=== PATIENT | male | born 1955 | race African-American/Black ===

== ENCOUNTER 2017-04-08 21:55 | Inpatient (IN) | payer MEDICARE, MEDICAID ==
[~2017-04-08] VITALS: Ht 182.9 cm; Wt 90.3 kg
[~2017-04-08 21:55] MED LIST: BENA40TA3 PO; DICL75TA5 PO; GABA-531 PO; GLIP10TA10 PO; INDA1.255; METO50TA95 PO; TRAM50TA3; VALS80TA25 PO
[2017-04-08] MEDS ORDERED: ONDANSETRON HCL 4MG/2ML VIAL IV STA (22:51)
[2017-04-08] MEDS ORDERED: KETOROLAC 30MG/ML VIAL IV STA (22:51)
[2017-04-09] MEDS ORDERED: DOCUSATE SODIUM 100MG CAPSULE PO PRN (00:15)
[2017-04-09] MEDS ORDERED: IPRATROPIUM/ALBUTEROL 0.5-3(2.5)MG/3ML NEB INH PRN (00:15)
[2017-04-09] MEDS ORDERED: CLONIDINE 0.1MG TABLET PO PRN (00:15)
[2017-04-09] MEDS ORDERED: MORPHINE SULFATE 4 MG/ML CPJ (NOT FOR IM USE) IV ONE (00:15)
[2017-04-09] MEDS ORDERED: MAGNESIUM/ALUMINUM HYDROXIDE/SIMETHICONE 30ML UDC PO PRN (00:15)
[2017-04-09] MEDS ORDERED: ACETAMINOPHEN 325MG TABLET PO PRN (00:15)
[2017-04-09] MEDS ORDERED: ONDANSETRON HCL 4MG/2ML VIAL IV PRN (00:15)
[2017-04-09] MEDS ORDERED: MORPHINE SULFATE 10 MG/ML CPJ IV ONE (00:30)
[2017-04-09] MEDS ORDERED: MORPHINE SULFATE 10 MG/ML CPJ IV SCH (00:30)
[2017-04-09 00:31] LABS: BASOPHILS % 0.7 % (0.0-2.0); EOSINOPHILS % 2.6 % (0.0-5.0); HEMATOCRIT. 31.1 % (42.0-52.0); HEMOGLOBIN. 10.3 g/dL (14.0-18.0); LYMPHOCYTES % 19.2 % (20.0-50.0); MEAN CORPUSCULAR HEMOGLOBIN 29.9 pg (28.0-32.0); MEAN CORPUSCULAR VOLUME 90.3 fL (80.0-94.0); MONOCYTES % 6.6 % (2.0-8.0); NEUTROPHILS % 70.9 % (40.0-76.0); PLATELET 163 x1000/uL (130-400); RED BLOOD CELL COUNT 3.45 mill/uL (4.7-6.1); RED CELL DISTRIBUTION WIDTH 15.6 % (11.6-14.6)
[2017-04-09 02:19] VITALS: BP 189/114
[2017-04-09] MEDS: HYDRALAZINE 20MG/ML VIAL IV PRN ×2 (02:58→20:23)
[2017-04-09] MEDS: HYDROCODONE/ACETAMINOPHEN 5/325MG TABLET PO PRN ×3 (02:59→22:01)
[2017-04-09 04:16] VITALS: BP 160/86
[2017-04-09] MEDS ORDERED: DEXTROSE 50% WATER 50ML SYRINGE IV PRN (04:30)
[2017-04-09] MEDS: BLOOD SUGAR DIAGNOSTIC STRIP TEST SCH ×4 (05:59→20:28)
[2017-04-09] MEDS: INSULIN LISPRO 100 UNITS/ML SUBCUT SCH ×4 (07:50→20:19)
[2017-04-09 08:00] VITALS: BP 183/104
[2017-04-09] MEDS: FOLIC ACID/VITAMIN B COMP W-C TABLET PO SCH (09:01)
[2017-04-09 12:00] VITALS: BP 151/94
[2017-04-09] MEDS ORDERED: NON FORMULARY PATIENT HOME MED EA XX SCH (12:15)
[2017-04-09] MEDS: METOPROLOL TARTRATE 50MG TABLET PO SCH (12:45)
[2017-04-09] MEDS: DICLOFENAC SODIUM 75MG DR (EC) TABLET PO SCH (12:45)
[2017-04-09] MEDS: BENAZEPRIL 20MG TABLET PO SCH (12:45)
[2017-04-09 16:00] VITALS: BP 184/111
[2017-04-09] MEDS: GLIPIZIDE 10MG TABLET PO SCH (16:43)
[2017-04-09] MEDS ORDERED: DIPHENHYDRAMINE 50MG/ML VIAL IV PRN ×2 (16:45→17:00)
[2017-04-09] MEDS: LOSARTAN POTASSIUM 50 MG TABLET PO SCH (18:00)
[2017-04-09 20:00] VITALS: BP 176/106
[2017-04-09] MEDS ORDERED: EPOETIN ALFA 4000UNITS/ML VIAL SUBCUT SCH (21:00)
[2017-04-09] MEDS ORDERED: GABAPENTIN 300MG CAPSULE PO SCH (21:00)
[2017-04-10] VITALS: BP 152/90
[2017-04-10] MEDS: METOPROLOL TARTRATE 50MG TABLET PO SCH ×2 (01:22→13:01)
[2017-04-10 04:00] VITALS: BP 131/84
[2017-04-10] MEDS: BLOOD SUGAR DIAGNOSTIC STRIP TEST SCH ×2 (06:51→12:20)
[2017-04-10 07:11] LABS: BASOPHILS % 0.9 % (0.0-2.0); EOSINOPHILS % 5.3 % (0.0-5.0); HEMOGLOBIN. 11.7 g/dL (14.0-18.0); LYMPHOCYTES % 28.8 % (20.0-50.0); MEAN CORPUSCULAR HEMOGLOBIN 29.5 pg (28.0-32.0); MEAN CORPUSCULAR VOLUME 90.3 fL (80.0-94.0); MONOCYTES % 9.7 % (2.0-8.0); NEUTROPHILS % 55.3 % (40.0-76.0); PLATELET 152 x1000/uL (130-400); RED BLOOD CELL COUNT 3.98 mill/uL (4.7-6.1)
[2017-04-10] MEDS: INSULIN LISPRO 100 UNITS/ML SUBCUT SCH ×2 (07:50→12:32)
[2017-04-10 08:00] VITALS: BP 141/96
[2017-04-10 08:03] LABS: PHOSPHORUS 5.7 mg/dL (2.5-4.9); TROPONIN I 0.25 ng/mL (0.00-0.04)
[2017-04-10] MEDS: GLIPIZIDE 10MG TABLET PO SCH (08:25)
[2017-04-10] MEDS: LOSARTAN POTASSIUM 50 MG TABLET PO SCH (08:25)
[2017-04-10] MEDS: FOLIC ACID/VITAMIN B COMP W-C TABLET PO SCH (08:26)
[2017-04-10] MEDS: DICLOFENAC SODIUM 75MG DR (EC) TABLET PO SCH (08:26)
[2017-04-10] MEDS: HYDROCODONE/ACETAMINOPHEN 5/325MG TABLET PO PRN (08:27)
[2017-04-10] MEDS: BENAZEPRIL 20MG TABLET PO SCH (08:34)
[2017-04-10 08:57] VITALS: BP 141/96
[2017-04-10 10:43] VITALS: BP 150/88
[2017-04-10 12:33] VITALS: BP 152/89
[2017-04-10] MEDS ORDERED: SEVELAMER CARBONATE 800 MG TABLET PO SCH (12:50)
[2017-04-11] MEDS ORDERED: LOSARTAN POTASSIUM 100 MG TABLET PO SCH (09:00)
== END 2017-04-10 14:15 | disposition home or self-care (01) | DRG 291 ==
LOC: ER 21:55 → 6WST 23:52 → EDBEDREQTM 23:54 → EDBEDREQ 23:54 → ENRESERV 04-09 00:41
PROVIDERS: ADMIT Internal Medicine; ATTEND Internal Medicine
PROC: 5A1D70Z Performance of Urinary Filtration, Intermittent, Less than 6 Hours Per Day (ICD-10-PCS; principal; 2017-04-09)
DX: I13.2 Hypertensive heart and chronic kidney disease with heart failure and with stage 5 chronic kidney disease, or end stage renal disease (principal); N18.6 End stage renal disease; E11.22 Type 2 diabetes mellitus with diabetic chronic kidney disease; E11.51 Type 2 diabetes mellitus with diabetic peripheral angiopathy without gangrene; I50.31 Acute diastolic (congestive) heart failure; D63.8 Anemia in other chronic diseases classified elsewhere; E66.9 Obesity, unspecified; E78.5 Hyperlipidemia, unspecified; M54.5 Low back pain; K59.00 Constipation, unspecified; F17.210 Nicotine dependence, cigarettes, uncomplicated; F32.9 Major depressive disorder, single episode, unspecified; G89.29 Other chronic pain; M19.90 Unspecified osteoarthritis, unspecified site; Z79.84 Long term (current) use of oral hypoglycemic drugs; Z79.899 Other long term (current) drug therapy; Z91.19 Patient's noncompliance with other medical treatment and regimen; Z95.810 Presence of automatic (implantable) cardiac defibrillator; Z99.2 Dependence on renal dialysis; Z68.27 Body mass index [BMI] 27.0-27.9, adult
CPT/HCPCS: 36415; 71010; 80048; 80061; 82550; 82962; 83735; 84100; 84443; 84484; 85025; 93005; 93306; 93970; 96374; 96375; 99285; J0360; J0885; J1200; J1815; J1885; J2270; J2405; J7030

== ENCOUNTER 2017-04-13 23:43 | Emergency (ER) | payer MEDICARE, MEDICAID ==
[~2017-04-13] VITALS: Ht 182.9 cm; Wt 91.0 kg
[2017-04-14 01:30] LABS: BASOPHILS % 0.9 % (0.0-2.0); EOSINOPHILS % 4.8 % (0.0-5.0); HEMATOCRIT. 31.6 % (42.0-52.0); HEMOGLOBIN. 10.2 g/dL (14.0-18.0); LYMPHOCYTES % 31.8 % (20.0-50.0); MEAN CORPUSCULAR HEMOGLOBIN 29.3 pg (28.0-32.0); MEAN CORPUSCULAR VOLUME 90.4 fL (80.0-94.0); MEAN PLATELET VOLUME 8.4 fl (7.4-10.4); MONOCYTES % 9.1 % (2.0-8.0); NEUTROPHILS % 53.4 % (40.0-76.0); PLATELET 138 x1000/uL (130-400); RED BLOOD CELL COUNT 3.49 mill/uL (4.7-6.1)
[2017-04-14 01:39] LABS: TROPONIN I 0.12 ng/mL (0.00-0.04)
[2017-04-14 03:10] VITALS: BP 127/92
== END 2017-04-14 03:12 | disposition home or self-care (01) ==
LOC: ER 23:59
DX: R06.02 Shortness of breath (principal); I10 Essential (primary) hypertension; F17.200 Nicotine dependence, unspecified, uncomplicated; Z99.2 Dependence on renal dialysis
CPT/HCPCS: 36415; 71010; 80048; 84484; 85025; 93005; 99285

== ENCOUNTER 2018-04-14 07:10 | Day surgery (SDC) | payer MEDICARE, MEDICAID ==
[~2018-04-14] VITALS: Ht 182.9 cm; Wt 84.8 kg
[~2018-04-14 07:10] MED LIST changes: -BENA40TA3 PO; +BENA40TA9 PO; -GLIP10TA10 PO; +SODIUM CHLORIDE 0.9% 500 ML IV NR; -VALS80TA25 PO
[2018-04-14] MEDS ORDERED: BACITRACIN 15GM TUBE TOP ONE (07:39)
[2018-04-14] MEDS ORDERED: BACITRACIN 50,000 UNITS/VIAL ONE (07:40)
[2018-04-14] MEDS ORDERED: THROMBIN (BOVINE) 5000 UNITS/VIAL TOP ONE ×2 (07:40→11:24)
[2018-04-14] MEDS ORDERED: HEPARIN SODIUM 1,000 UNIT/1ML VIAL IV ONE (07:40)
[2018-04-14] MEDS ORDERED: NORMAL SALINE 0.9% 10 ML SYR ONE (07:40)
[2018-04-14] MEDS ORDERED: GELATIN SPONGE,ABSORBABLE 12-7MM SPONGE ONE (07:43)
[2018-04-14] MEDS ORDERED: LIDOCAINE HCL 1% 20ML VIAL (Pyxis) INJ ONE (07:43)
[2018-04-14] MEDS ORDERED: BUPIVACAINE HCL/PF 0.5% (5MG/ML) 10ML ONE (07:43)
[2018-04-14 08:12] LABS: BASOPHILS % 0.8 % (0.0-2.0); EOSINOPHILS % 6.7 % (0.0-5.0); HEMATOCRIT. 36.9 % (42.0-52.0); HEMOGLOBIN. 12.1 g/dL (14.0-18.0); LYMPHOCYTES % 20.1 % (20.0-50.0); MEAN CORPUSCULAR HEMOGLOBIN 30.7 pg (28.0-32.0); MEAN CORPUSCULAR VOLUME 93.5 fL (80.0-94.0); MEAN PLATELET VOLUME 8.5 fl (7.4-10.4); MONOCYTES % 12.4 % (2.0-8.0); PLATELET 115 x1000/uL (130-400); RED BLOOD CELL COUNT 3.95 mill/uL (4.7-6.1); RED CELL DISTRIBUTION WIDTH 17.2 % (11.6-14.6)
[2018-04-14 08:23] LABS: PARTIAL THROMBOPLASTIN TIME 26.7 sec (23.4-31.0); PROTHROMBIN TIME 9.8 sec (9.1-11.1)
[2018-04-14] MEDS ORDERED: VALS80TA30 PO (08:45)
[2018-04-14] MEDS ORDERED: GLIP10TA10 PO (08:45)
[2018-04-14] MEDS ORDERED: TYLENOL PM PO (08:45)
[2018-04-14] MEDS ORDERED: FENTANYL CITRATE/PF 50MCG/ML 2ML VIAL ONE (09:53)
[2018-04-14] MEDS ORDERED: MIDAZOLAM HCL 2 MG/2 ML VIAL ONE (09:53)
[2018-04-14] MEDS ORDERED: GLYCOPYRROLATE 0.2 MG/ML 2ML VIAL ONE (09:53)
[2018-04-14] MEDS ORDERED: PROPOFOL 200MG/20ML VIAL IV ONE (09:53)
[2018-04-14] MEDS ORDERED: LIDOCAINE HCL/PF 1% 10 MG/ML 5ML VIAL ONE (09:54)
[2018-04-14] MEDS ORDERED: METOCLOPRAMIDE HCL 10MG/2ML VIAL ONE (09:54)
[2018-04-14] MEDS ORDERED: SUCCINYLCHOLINE CHLORIDE 200MG/10ML IV ONE (09:54)
[2018-04-14] MEDS ORDERED: PHENYLEPHRINE HCL 10 MG/ML 1ML (IV VIAL) IV ONE (09:54)
[2018-04-14] MEDS ORDERED: ONDANSETRON HCL 4MG/2ML INJ ONE (09:54)
[2018-04-14] MEDS ORDERED: EPHEDRINE SULFATE 50MG/ML VIAL ONE (09:54)
[2018-04-14] MEDS ORDERED: PAPAVERINE HCL 30 MG/ML 2ML IV ONE (10:35)
[2018-04-14] MEDS ORDERED: HEPARIN 1000 UNITS/ML 10ML ONE (10:56)
[2018-04-14] MEDS ORDERED: MEPERIDINE HCL/PF 25MG/ML CPJ IV PRN (11:15)
[2018-04-14] MEDS ORDERED: HYDROMORPHONE HCL/PF 2MG/ML CPJ IV PRN (11:15)
[2018-04-14] MEDS ORDERED: MORPHINE SULFATE 4 MG/ML CPJ (NOT FOR IM USE) IV PRN (11:15)
[2018-04-14] MEDS ORDERED: ONDANSETRON HCL 4MG/2ML INJ IV PRN (11:15)
[2018-04-14] MEDS ORDERED: SODIUM CHLORIDE 0.9% 1,000 ML IV ONE (11:20)
[2018-04-14] MEDS ORDERED: PROTAMINE SULFATE 10MG/ML VIAL 5ML IV ONE (11:30)
[2018-04-14] MEDS ORDERED: HYDROCODONE/APAP 7.5/325MG 1 TAB TABLET PO NR (13:00)
[2018-04-14 13:20] VITALS: BP 136/82
== END 2018-04-14 13:35 | disposition home or self-care (01) ==
LOC: OR 07:10
PROVIDERS: ATTEND Surgery Vascular Surgery
DX: I77.0 Arteriovenous fistula, acquired (principal); J44.9 Chronic obstructive pulmonary disease, unspecified; I13.2 Hypertensive heart and chronic kidney disease with heart failure and with stage 5 chronic kidney disease, or end stage renal disease; E11.22 Type 2 diabetes mellitus with diabetic chronic kidney disease; N18.6 End stage renal disease; I50.9 Heart failure, unspecified; F32.9 Major depressive disorder, single episode, unspecified; F17.210 Nicotine dependence, cigarettes, uncomplicated; M19.90 Unspecified osteoarthritis, unspecified site; E78.5 Hyperlipidemia, unspecified; Z79.899 Other long term (current) drug therapy; Z98.890 Other specified postprocedural states; Z95.0 Presence of cardiac pacemaker; Z96.651 Presence of right artificial knee joint
CPT/HCPCS: 36415; 36819; 80048; 82962; 85025; 85610; 85730; A4216; J0330; J1644; J2250; J2370; J2405; J2440; J2720; J2765; J3010; J3490; A4565; J2704; J7040

== ENCOUNTER 2018-05-21 12:43 | Emergency (ER) | payer MEDICARE, MEDICAID ==
[~2018-05-21] VITALS: Ht 182.9 cm; Wt 82.0 kg
[~2018-05-21 12:43] MED LIST changes: +GLIP10TA10 PO; -SODIUM CHLORIDE 0.9% 500 ML IV NR; +TYLENOL PM PO; +VALS80TA30 PO
[2018-05-21] MEDS ORDERED: TRAMADOL 50MG TABLET PO ONE (16:00)
[2018-05-21 18:21] VITALS: BP 154/89
== END 2018-05-21 18:25 | disposition home or self-care (01) ==
LOC: ER 13:20
DX: S46.911A Strain of unspecified muscle, fascia and tendon at shoulder and upper arm level, right arm, initial encounter (principal); S29.012A Strain of muscle and tendon of back wall of thorax, initial encounter; I11.0 Hypertensive heart disease with heart failure; I50.9 Heart failure, unspecified; J45.909 Unspecified asthma, uncomplicated; E11.9 Type 2 diabetes mellitus without complications; F17.200 Nicotine dependence, unspecified, uncomplicated; Z99.2 Dependence on renal dialysis; Z79.899 Other long term (current) drug therapy; V59.59XA Passenger in pick-up truck or van injured in collision with other motor vehicles in traffic accident, initial encounter; Y93.89 Activity, other specified; Y92.89 Other specified places as the place of occurrence of the external cause; Y99.8 Other external cause status
CPT/HCPCS: 72070; 72100; 73030; 99283

== ENCOUNTER 2018-08-14 06:08 | Inpatient (IN) | payer MEDICARE, MEDICAID ==
[~2018-08-14] VITALS: Ht 182.9 cm; Wt 85.4 kg
[2018-08-14] MEDS ORDERED: OXYCODONE HCL/ACETAMINOPHEN 5/325MG TABLET PO ONE (07:00)
[2018-08-14] MEDS ORDERED: IPRATROPIUM BROMIDE (0.02%) 0.5MG/2.5ML NEB HHN STA (07:05)
[2018-08-14] MEDS ORDERED: METHYLPREDNISOLONE SOD SUCC 125 MG/2 ML VIAL IV STA (07:05)
[2018-08-14 07:23] LABS: CHLORIDE 106 mEq/L (98-107)
[2018-08-14] MEDS ORDERED: ALBUTEROL (0.083%) 2.5MG/3ML NEB HHN SCH (07:30)
[2018-08-14 07:41] LABS: BASOPHILS % 0.4 % (0.0-2.0); HEMATOCRIT. 33.3 % (42.0-52.0); LYMPHOCYTES % 25.4 % (20.0-50.0); MEAN CORPUSCULAR HEMOGLOBIN 30.7 pg (28.0-32.0); MEAN CORPUSCULAR VOLUME 92.8 fL (80.0-94.0); MEAN PLATELET VOLUME 9.6 fl (7.4-10.4); MONOCYTES % 14.1 % (2.0-8.0); NEUTROPHILS % 56.1 % (40.0-76.0); PLATELET 157 x1000/uL (130-400); RED BLOOD CELL COUNT 3.59 mill/uL (4.7-6.1); RED CELL DISTRIBUTION WIDTH 15.8 % (11.6-14.6)
[2018-08-14] MEDS ORDERED: MORPHINE SULFATE 4 MG/ML CPJ (NOT FOR IM USE) IV ONE ×2 (08:15→12:45)
[2018-08-14] MEDS ORDERED: CLONIDINE 0.2MG TABLET PO NR (09:30)
[2018-08-14] MEDS ORDERED: NON FORMULARY PATIENT HOME MED XX SCH (12:15)
[2018-08-14] MEDS ORDERED: ONDANSETRON HCL 4MG/2ML INJ IV PRN (12:30)
[2018-08-14] MEDS ORDERED: CLONIDINE 0.1MG TABLET PO PRN (12:30)
[2018-08-14] MEDS ORDERED: DOCUSATE SODIUM 100MG CAPSULE PO PRN (12:30)
[2018-08-14] MEDS ORDERED: ACETAMINOPHEN 325MG TABLET PO PRN (12:30)
[2018-08-14 13:20] VITALS: BP 184/93
[2018-08-14 13:34] LABS: CREATINE KINASE MB FRACTION 6.2 ng/mL (0.5-3.6)
[2018-08-14] MEDS ORDERED: DEXTROSE 50% WATER 50ML SYRINGE IV PRN (14:00)
[2018-08-14] MEDS ORDERED: LOSARTAN POTASSIUM 50 MG TABLET PO SCH (14:02)
[2018-08-14] MEDS: METOPROLOL TARTRATE 50MG TABLET PO SCH (14:03)
[2018-08-14] MEDS: INSULIN LISPRO 100 UNITS/ML SUBCUT SCH ×3 (14:11→21:42)
[2018-08-14] MEDS: BLOOD SUGAR DIAGNOSTIC STRIP TEST SCH ×3 (14:11→21:44)
[2018-08-14 16:20] VITALS: BP 146/77
[2018-08-14] MEDS ORDERED: BLOOD SUGAR DIAGNOSTIC STRIP TEST SCH (17:20)
[2018-08-14] MEDS: GLIPIZIDE 10MG TABLET PO SCH (17:24)
[2018-08-14] MEDS: CLONIDINE 0.1MG TABLET PO SCH ×2 (17:25→21:43)
[2018-08-14] MEDS ORDERED: INSULIN LISPRO 100 UNITS/ML SUBCUT SCH (17:50)
[2018-08-14] MEDS: CALCIUM ACETATE 667MG CAPSULE PO SCH (18:13)
[2018-08-14] MEDS: IPRATROPIUM/ALBUTEROL 0.5-3(2.5)MG/3ML NEB INH PRN (18:41)
[2018-08-14] MEDS: HYDROCODONE/ACETAMINOPHEN 5/325MG TABLET PO PRN (18:59)
[2018-08-14 19:19] LABS: *AMPHETAMINES SCREEN URINE NEGATIVE (NEGATIVE); *BARBITURATES SCREEN URINE NEGATIVE (NEGATIVE); *BENZODIAZEPINES SCREEN URINE NEGATIVE (NEGATIVE); *COCAINE SCREEN URINE NEGATIVE (NEGATIVE)
[2018-08-14 19:20] LABS: CANNABINOID URINE SCREEN NEGATIVE (NEGATIVE); METHADONE URINE SCREEN NEGATIVE (NEGATIVE); OPIATES URINE SCREEN PRESUMTIVE POSITIVE (NEGATIVE); PHENCYCLIDINE URINE SCREEN NEGATIVE (NEGATIVE)
[2018-08-14 20:00] VITALS: BP 162/93
[2018-08-14] MEDS: LORAZEPAM 0.5MG TABLET PO PRN (21:32)
[2018-08-14] MEDS: GABAPENTIN 100MG CAPSULE PO SCH (21:36)
[2018-08-15] VITALS: BP 144/79
[2018-08-15 04:00] VITALS: BP 147/78
[2018-08-15] MEDS: BLOOD SUGAR DIAGNOSTIC STRIP TEST SCH ×4 (07:48→21:03)
[2018-08-15] MEDS: CLONIDINE 0.1MG TABLET PO SCH ×4 (07:48→22:06)
[2018-08-15] MEDS: CALCIUM ACETATE 667MG CAPSULE PO SCH ×4 (07:50→17:50)
[2018-08-15] MEDS: INSULIN LISPRO 100 UNITS/ML SUBCUT SCH ×4 (07:50→21:00)
[2018-08-15] MEDS: GLIPIZIDE 10MG TABLET PO SCH ×3 (07:50→17:50)
[2018-08-15] MEDS: IPRATROPIUM/ALBUTEROL 0.5-3(2.5)MG/3ML NEB INH PRN (07:58)
[2018-08-15 08:00] VITALS: BP 157/87
[2018-08-15] MEDS: METOPROLOL TARTRATE 50MG TABLET PO SCH ×2 (09:00→21:00)
[2018-08-15] MEDS: BENAZEPRIL 10MG TABLET PO SCH (09:00)
[2018-08-15] MEDS: LOSARTAN POTASSIUM 50 MG TABLET PO SCH ×2 (09:00→21:00)
[2018-08-15] MEDS: FOLIC ACID/VITAMIN B COMP W-C TABLET PO SCH ×2 (09:00→09:16)
[2018-08-15] MEDS: HYDROCODONE/ACETAMINOPHEN 5/325MG TABLET PO PRN (09:16)
[2018-08-15] MEDS ORDERED: DIPHENHYDRAMINE 50MG/ML VIAL IV SCH (10:00)
[2018-08-15] MEDS: MORPHINE SULFATE 4 MG/ML CPJ (NOT FOR IM USE) IV PRN ×2 (10:36→16:35)
[2018-08-15] MEDS ORDERED: GUAIFENESIN 200MG/10ML SUGAR FREE UDC PO PRN (12:30)
[2018-08-15 12:40] VITALS: BP 142/80
[2018-08-15 16:09] VITALS: BP 191/104
[2018-08-15] MEDS ORDERED: DIPHENHYDRAMINE 50MG/ML VIAL IV NR (19:30)
[2018-08-15 20:00] VITALS: BP 169/105
[2018-08-15] MEDS: GABAPENTIN 100MG CAPSULE PO SCH (22:05)
[2018-08-16] VITALS: BP 119/68
[2018-08-16 04:00] VITALS: BP 139/77
[2018-08-16] MEDS: CLONIDINE 0.1MG TABLET PO SCH ×4 (06:20→21:26)
[2018-08-16] MEDS: BLOOD SUGAR DIAGNOSTIC STRIP TEST SCH ×4 (06:20→20:06)
[2018-08-16 08:00] VITALS: BP 120/69
[2018-08-16 08:17] LABS: BASOPHILS % 0.5 % (0.0-2.0); EOSINOPHILS % 6.4 % (0.0-5.0); HEMATOCRIT. 31.5 % (42.0-52.0); HEMOGLOBIN. 10.5 g/dL (14.0-18.0); LYMPHOCYTES % 32.3 % (20.0-50.0); MEAN CORPUSCULAR VOLUME 92.7 fL (80.0-94.0); MEAN PLATELET VOLUME 9.7 fl (7.4-10.4); MONOCYTES % 7.9 % (2.0-8.0); NEUTROPHILS % 52.9 % (40.0-76.0); PLATELET 136 x1000/uL (130-400); RED CELL DISTRIBUTION WIDTH 15.6 % (11.6-14.6)
[2018-08-16 08:27] LABS: PHOSPHORUS 5.2 mg/dL (2.5-4.9)
[2018-08-16] MEDS: CALCIUM ACETATE 667MG CAPSULE PO SCH ×4 (09:19→17:50)
[2018-08-16] MEDS: FOLIC ACID/VITAMIN B COMP W-C TABLET PO SCH (09:19)
[2018-08-16] MEDS: GLIPIZIDE 10MG TABLET PO SCH ×2 (09:19→17:16)
[2018-08-16] MEDS: LOSARTAN POTASSIUM 50 MG TABLET PO SCH ×2 (09:19→20:06)
[2018-08-16] MEDS: METOPROLOL TARTRATE 50MG TABLET PO SCH ×2 (09:19→20:06)
[2018-08-16] MEDS: BENAZEPRIL 10MG TABLET PO SCH (09:19)
[2018-08-16] MEDS: INSULIN LISPRO 100 UNITS/ML SUBCUT SCH ×4 (09:22→20:06)
[2018-08-16 12:00] VITALS: BP 168/87
[2018-08-16 16:00] VITALS: BP 119/65
[2018-08-16] MEDS: HYDROCODONE/ACETAMINOPHEN 5/325MG TABLET PO PRN (18:37)
[2018-08-16 20:00] VITALS: BP 182/101
[2018-08-16] MEDS: GABAPENTIN 100MG CAPSULE PO SCH (20:06)
[2018-08-16] MEDS: MORPHINE SULFATE 4 MG/ML CPJ (NOT FOR IM USE) IV PRN (20:06)
[2018-08-16] MEDS: LORAZEPAM 0.5MG TABLET PO PRN (22:16)
[2018-08-16] MEDS: DIPHENHYDRAMINE 25MG CAPSULE PO PRN (23:43)
[2018-08-16] MEDS ORDERED: REGADENOSON 0.4 MG/5 ML IV NR (23:45)
[2018-08-16] MEDS ORDERED: ZOLPIDEM TARTRATE 5MG TABLET PO PRN (23:45)
[2018-08-17] VITALS: BP 135/76
[2018-08-17] MEDS: IPRATROPIUM/ALBUTEROL 0.5-3(2.5)MG/3ML NEB INH PRN ×3 (03:06→20:27)
[2018-08-17] MEDS: MORPHINE SULFATE 4 MG/ML CPJ (NOT FOR IM USE) IV PRN ×3 (03:52→21:03)
[2018-08-17 04:00] VITALS: BP 155/91
[2018-08-17] MEDS: CLONIDINE 0.1MG TABLET PO SCH ×3 (06:00→22:00)
[2018-08-17] MEDS: BLOOD SUGAR DIAGNOSTIC STRIP TEST SCH ×4 (06:20→21:00)
[2018-08-17] MEDS: INSULIN LISPRO 100 UNITS/ML SUBCUT SCH ×4 (07:50→21:00)
[2018-08-17] MEDS: GLIPIZIDE 10MG TABLET PO SCH ×2 (07:50→19:26)
[2018-08-17 08:00] VITALS: BP 135/78
[2018-08-17] MEDS: LOSARTAN POTASSIUM 50 MG TABLET PO SCH ×2 (09:00→21:00)
[2018-08-17] MEDS: BENAZEPRIL 10MG TABLET PO SCH (09:00)
[2018-08-17] MEDS: METOPROLOL TARTRATE 50MG TABLET PO SCH ×2 (09:00→21:00)
[2018-08-17] MEDS: DIPHENHYDRAMINE 25MG CAPSULE PO PRN (09:34)
[2018-08-17] MEDS: CALCIUM ACETATE 667MG CAPSULE PO SCH ×3 (09:35→19:26)
[2018-08-17] MEDS: FOLIC ACID/VITAMIN B COMP W-C TABLET PO SCH (09:35)
[2018-08-17] MEDS ORDERED: REGADENOSON 0.4 MG/5 ML IV ONE (11:02)
[2018-08-17] MEDS ORDERED: IODIXANOL 320MG/ML 100 ML BOTTLE IV ONE (14:48)
[2018-08-17] MEDS ORDERED: LIDOCAINE HCL 1% 20ML VIAL (Pyxis) INJ ONE (14:49)
[2018-08-17 16:00] VITALS: BP 175/103
[2018-08-17 20:00] VITALS: BP 167/97
[2018-08-17] MEDS: GABAPENTIN 100MG CAPSULE PO SCH (21:00)
[2018-08-17] MEDS: HYDROCODONE/ACETAMINOPHEN 5/325MG TABLET PO PRN (23:23)
[2018-08-17 23:58] VITALS: BP 195/92
[2018-08-18] MEDS: MORPHINE SULFATE 4 MG/ML CPJ (NOT FOR IM USE) IV PRN (02:55)
[2018-08-18 04:00] VITALS: BP 164/88
[2018-08-18] MEDS: CLONIDINE 0.1MG TABLET PO SCH (06:00)
[2018-08-18] MEDS: HYDROCODONE/ACETAMINOPHEN 5/325MG TABLET PO PRN (06:57)
[2018-08-18] MEDS: GLIPIZIDE 10MG TABLET PO SCH (07:30)
[2018-08-18] MEDS: CALCIUM ACETATE 667MG CAPSULE PO SCH (07:50)
[2018-08-18] MEDS: INSULIN LISPRO 100 UNITS/ML SUBCUT SCH ×2 (07:50→11:47)
[2018-08-18 07:59] VITALS: BP 115/46
[2018-08-18] MEDS: BLOOD SUGAR DIAGNOSTIC STRIP TEST SCH ×2 (08:19→11:45)
[2018-08-18] MEDS: DIPHENHYDRAMINE 25MG CAPSULE PO PRN (08:26)
[2018-08-18] MEDS: LOSARTAN POTASSIUM 50 MG TABLET PO SCH (09:00)
[2018-08-18] MEDS: FOLIC ACID/VITAMIN B COMP W-C TABLET PO SCH (09:00)
[2018-08-18] MEDS: METOPROLOL TARTRATE 50MG TABLET PO SCH (09:00)
[2018-08-18] MEDS: BENAZEPRIL 10MG TABLET PO SCH (09:00)
[2018-08-18 09:19] LABS: BASOPHILS % 1.3 % (0.0-2.0); EOSINOPHILS % 3.9 % (0.0-5.0); HEMATOCRIT. 28.6 % (42.0-52.0); HEMOGLOBIN. 9.6 g/dL (14.0-18.0); LYMPHOCYTES % 26.3 % (20.0-50.0); MEAN CORPUSCULAR HEMOGLOBIN 30.7 pg (28.0-32.0); MEAN CORPUSCULAR VOLUME 91.6 fL (80.0-94.0); MEAN PLATELET VOLUME 9.7 fl (7.4-10.4); MONOCYTES % 9.6 % (2.0-8.0); NEUTROPHILS % 58.9 % (40.0-76.0); PLATELET 117 x1000/uL (130-400); RED BLOOD CELL COUNT 3.13 mill/uL (4.7-6.1); RED CELL DISTRIBUTION WIDTH 15.9 % (11.6-14.6)
[2018-08-18 12:00] VITALS: BP 129/77
[2018-08-18] MEDS ORDERED: CLON0.1T14 PO (12:11)
[2018-08-18] MEDS ORDERED: NEPVIT PO (12:11)
[2018-08-18] MEDS ORDERED: CALC667C PO (12:11)
[2018-08-18] MEDS: IPRATROPIUM/ALBUTEROL 0.5-3(2.5)MG/3ML NEB INH PRN (12:14)
[2018-08-18] MEDS ORDERED: VALS80TA30 MT (12:17)
== END 2018-08-18 13:35 | disposition home or self-care (01) | DRG 280 ==
LOC: ER 06:08 → 6WST 08:31 → ENRESERV 12:37
PROVIDERS: ADMIT Internal Medicine; ATTEND Internal Medicine
PROC: 5A1D70Z Performance of Urinary Filtration, Intermittent, Less than 6 Hours Per Day (ICD-10-PCS; 2018-08-14)
PROC: 5A1D70Z Performance of Urinary Filtration, Intermittent, Less than 6 Hours Per Day (ICD-10-PCS; principal; 2018-08-17)
DX: I21.4 Non-ST elevation (NSTEMI) myocardial infarction (principal); N18.6 End stage renal disease; I16.1 Hypertensive emergency; J98.11 Atelectasis; J44.1 Chronic obstructive pulmonary disease with (acute) exacerbation; I13.2 Hypertensive heart and chronic kidney disease with heart failure and with stage 5 chronic kidney disease, or end stage renal disease; I43 Cardiomyopathy in diseases classified elsewhere; I50.42 Chronic combined systolic (congestive) and diastolic (congestive) heart failure; E78.5 Hyperlipidemia, unspecified; D64.9 Anemia, unspecified; E11.22 Type 2 diabetes mellitus with diabetic chronic kidney disease; E83.39 Other disorders of phosphorus metabolism; E11.51 Type 2 diabetes mellitus with diabetic peripheral angiopathy without gangrene; E11.65 Type 2 diabetes mellitus with hyperglycemia; F32.9 Major depressive disorder, single episode, unspecified; I49.5 Sick sinus syndrome; I07.1 Rheumatic tricuspid insufficiency; F17.200 Nicotine dependence, unspecified, uncomplicated; I25.10 Atherosclerotic heart disease of native coronary artery without angina pectoris; I27.20 Pulmonary hypertension, unspecified; Z96.651 Presence of right artificial knee joint; Z99.2 Dependence on renal dialysis; Z95.0 Presence of cardiac pacemaker; Z79.84 Long term (current) use of oral hypoglycemic drugs; Z79.899 Other long term (current) drug therapy
CPT/HCPCS: 36415; 71045; 78452; 80048; 80305; 82550; 82553; 82962; 83880; 84100; 84484; 93005; 93017; 93306; 94640; 96374; 96375; 99285; A9500; C1893; J1200; J1644; J1815; J2270; J2405; J2785; J2930; J3490; J7611; J7620; Q0163; Q9967

== ENCOUNTER 2018-10-01 17:11 | Inpatient (IN) | payer MEDICARE, MEDICAID ==
[~2018-10-01] VITALS: Ht 182.9 cm; Wt 80.7 kg
[~2018-10-01 17:11] MED LIST changes: +CALC667C PO; +CLON0.1T14 PO; +NEPVIT PO; +VALS80TA30 MT; -VALS80TA30 PO
[2018-10-01 19:02] LABS: CHLORIDE 102 mEq/L (98-107); HEMOGLOBIN. 11.3 g/dL (14.0-18.0); MEAN CORPUSCULAR HEMOGLOBIN 31.8 pg (28.0-32.0); MEAN CORPUSCULAR VOLUME 92.5 fL (80.0-94.0); PLATELET 201 x1000/uL (130-400); RED BLOOD CELL COUNT 3.56 mill/uL (4.7-6.1); RED CELL DISTRIBUTION WIDTH 15.5 % (11.6-14.6)
[2018-10-01 19:35] LABS: PLATELET ESTIMATE NORMAL
[2018-10-01] MEDS ORDERED: MORPHINE SULFATE 4 MG/ML CPJ (NOT FOR IM USE) IV STA ×2 (19:57→21:51)
[2018-10-01] MEDS ORDERED: ONDANSETRON HCL 4MG/2ML INJ IV STA ×2 (19:57→21:51)
[2018-10-01] MEDS ORDERED: ASPIRIN 325MG EC TABLET PO ONE (20:15)
[2018-10-01] MEDS ORDERED: ACETAMINOPHEN 500MG TABLET PO ONE (22:45)
[2018-10-01] MEDS ORDERED: DOCUSATE SODIUM 100MG CAPSULE PO PRN (23:30)
[2018-10-01] MEDS ORDERED: ACETAMINOPHEN 325MG TABLET PO PRN (23:30)
[2018-10-01] MEDS ORDERED: ONDANSETRON HCL 4MG/2ML INJ IV PRN (23:30)
[2018-10-01] MEDS ORDERED: CLONIDINE 0.1MG TABLET PO PRN (23:30)
[2018-10-02 00:34] VITALS: BP 159/93
[2018-10-02] MEDS: HYDROCODONE/ACETAMINOPHEN 5/325MG TABLET PO PRN ×3 (01:59→19:13)
[2018-10-02] MEDS ORDERED: DEXTROSE 50% WATER 50ML SYRINGE IV PRN (02:15)
[2018-10-02] MEDS ORDERED: MORPHINE SULFATE 2 MG/ML CPJ (NOT FOR IM USE) IV NR (06:00)
[2018-10-02] MEDS: HYDRALAZINE 20MG/ML VIAL IV SCH ×4 (06:00→18:00)
[2018-10-02] MEDS: IPRATROPIUM/ALBUTEROL 0.5-3(2.5)MG/3ML NEB INH PRN ×2 (07:43→21:51)
[2018-10-02] MEDS: BLOOD SUGAR DIAGNOSTIC STRIP TEST SCH ×4 (07:45→21:12)
[2018-10-02] MEDS: INSULIN LISPRO 100 UNITS/ML SUBCUT SCH ×4 (07:45→21:00)
[2018-10-02 08:00] VITALS: BP 147/75
[2018-10-02] MEDS ORDERED: PNEUMOCOCCAL 23-VAL P-SAC VAC 0.5 ML IM ONE (08:00)
[2018-10-02 09:59] LABS: CHLORIDE 101 mEq/L (98-107)
[2018-10-02 10:06] LABS: LDL CHOLESTEROL 51 mg/dL (5-100)
[2018-10-02 10:09] LABS: HDL CHOLESTEROL 60 mg/dL (40-59)
[2018-10-02 10:11] LABS: CREATINE KINASE MB FRACTION 6.9 ng/mL (0.5-3.6)
[2018-10-02 10:12] LABS: BASOPHILS % 0.6 % (0.0-2.0); EOSINOPHILS % 4.1 % (0.0-5.0); HEMATOCRIT. 32.5 % (42.0-52.0); LYMPHOCYTES % 14.1 % (20.0-50.0); MEAN CORPUSCULAR HEMOGLOBIN 31.3 pg (28.0-32.0); MEAN CORPUSCULAR VOLUME 92.9 fL (80.0-94.0); MEAN PLATELET VOLUME 9.4 fl (7.4-10.4); MONOCYTES % 13.3 % (2.0-8.0); NEUTROPHILS % 67.9 % (40.0-76.0); PLATELET 203 x1000/uL (130-400); RED CELL DISTRIBUTION WIDTH 15.4 % (11.6-14.6)
[2018-10-02 10:20] LABS: CREATINE KINASE 1418 IU/L (39-308)
[2018-10-02 12:00] VITALS: BP 147/85
[2018-10-02] MEDS: LOSARTAN POTASSIUM 50 MG TABLET PO SCH ×2 (12:57→13:19)
[2018-10-02] MEDS: ENOXAPARIN 30MG/0.3ML SYR SUBCUT SCH ×2 (13:07→13:18)
[2018-10-02] MEDS: CALCIUM ACETATE 667MG CAPSULE PO SCH ×3 (13:10→19:10)
[2018-10-02] MEDS ORDERED: POTASSIUM CHLORIDE 20MEQ TABLET SR PO NR (14:38)
[2018-10-02 16:00] VITALS: BP 143/75
[2018-10-02 16:07] LABS: CREATINE KINASE MB FRACTION 6.3 ng/mL (0.5-3.6)
[2018-10-02] MEDS: PHENOL/SODIUM PHENOLATE 1.4% SRPAY 177ML MM PRN (16:35)
[2018-10-02 20:00] VITALS: BP 165/93
[2018-10-02] MEDS: MORPHINE SULFATE 2 MG/ML CPJ (NOT FOR IM USE) IV PRN (21:46)
[2018-10-02] MEDS: DIPHENHYDRAMINE 50MG/ML VIAL IV PRN (21:46)
[2018-10-03] VITALS: BP 164/92
[2018-10-03] MEDS: MORPHINE SULFATE 2 MG/ML CPJ (NOT FOR IM USE) IV PRN ×2 (02:32→14:20)
[2018-10-03 04:00] VITALS: BP 162/81
[2018-10-03] MEDS: BLOOD SUGAR DIAGNOSTIC STRIP TEST SCH ×4 (05:00→21:07)
[2018-10-03] MEDS: DIPHENHYDRAMINE 50MG/ML VIAL IV PRN ×2 (06:17→16:10)
[2018-10-03] MEDS: PHENOL/SODIUM PHENOLATE 1.4% SRPAY 177ML MM PRN (06:20)
[2018-10-03] MEDS: HYDRALAZINE 20MG/ML VIAL IV SCH ×4 (06:20→18:53)
[2018-10-03 07:30] LABS: BASOPHILS % 0.7 % (0.0-2.0); EOSINOPHILS % 3.4 % (0.0-5.0); HEMATOCRIT. 35.3 % (42.0-52.0); HEMOGLOBIN. 11.8 g/dL (14.0-18.0); LYMPHOCYTES % 12.7 % (20.0-50.0); MEAN CORPUSCULAR VOLUME 92.4 fL (80.0-94.0); MEAN PLATELET VOLUME 9.2 fl (7.4-10.4); MONOCYTES % 9.9 % (2.0-8.0); NEUTROPHILS % 73.3 % (40.0-76.0); PLATELET 189 x1000/uL (130-400); RED BLOOD CELL COUNT 3.82 mill/uL (4.7-6.1); RED CELL DISTRIBUTION WIDTH 15.3 % (11.6-14.6)
[2018-10-03 08:00] VITALS: BP 169/94
[2018-10-03] MEDS: INSULIN LISPRO 100 UNITS/ML SUBCUT SCH ×4 (08:03→21:31)
[2018-10-03] MEDS: ENOXAPARIN 30MG/0.3ML SYR SUBCUT SCH (09:00)
[2018-10-03] MEDS: CALCIUM ACETATE 667MG CAPSULE PO SCH ×3 (09:47→18:53)
[2018-10-03] MEDS: FOLIC ACID/VITAMIN B COMP W-C TABLET PO SCH (09:47)
[2018-10-03] MEDS: LOSARTAN POTASSIUM 50 MG TABLET PO SCH (09:47)
[2018-10-03] MEDS: DOCUSATE SODIUM 100MG CAPSULE PO SCH (09:48)
[2018-10-03 12:00] VITALS: BP 150/81
[2018-10-03] MEDS: BENAZEPRIL 10MG TABLET PO SCH (12:15)
[2018-10-03] MEDS: CLONIDINE 0.1MG TABLET PO SCH ×2 (14:00→22:29)
[2018-10-03] MEDS: DICLOFENAC SODIUM 75MG DR (EC) TABLET PO SCH (14:20)
[2018-10-03 16:00] VITALS: BP 147/57
[2018-10-03 20:00] VITALS: BP 123/64
[2018-10-03] MEDS: GABAPENTIN 300MG CAPSULE PO SCH (21:29)
[2018-10-03] MEDS: METOPROLOL TARTRATE 50MG TABLET PO SCH (21:30)
[2018-10-04] VITALS (8 sets, daily range): BP systolic 100–144; BP diastolic 63–88
[2018-10-04] MEDS: HYDRALAZINE 20MG/ML VIAL IV SCH ×4 (05:48→16:56)
[2018-10-04] MEDS: CLONIDINE 0.1MG TABLET PO SCH ×3 (05:59→21:08)
[2018-10-04 06:24] LABS: HEMATOCRIT. 35.6 % (42.0-52.0); MEAN CORPUSCULAR HEMOGLOBIN 31.2 pg (28.0-32.0); MEAN CORPUSCULAR VOLUME 92.1 fL (80.0-94.0); MEAN PLATELET VOLUME 9.2 fl (7.4-10.4); PLATELET 228 x1000/uL (130-400); RED BLOOD CELL COUNT 3.86 mill/uL (4.7-6.1); RED CELL DISTRIBUTION WIDTH 15.7 % (11.6-14.6)
[2018-10-04] MEDS: BLOOD SUGAR DIAGNOSTIC STRIP TEST SCH ×4 (07:40→21:01)
[2018-10-04] MEDS: INSULIN LISPRO 100 UNITS/ML SUBCUT SCH ×4 (08:10→21:00)
[2018-10-04] MEDS: BENAZEPRIL 10MG TABLET PO SCH (08:56)
[2018-10-04] MEDS: LOSARTAN POTASSIUM 50 MG TABLET PO SCH (08:56)
[2018-10-04] MEDS: DOCUSATE SODIUM 100MG CAPSULE PO SCH (08:56)
[2018-10-04] MEDS: METOPROLOL TARTRATE 50MG TABLET PO SCH ×2 (08:56→21:08)
[2018-10-04] MEDS: CALCIUM ACETATE 667MG CAPSULE PO SCH ×3 (08:56→17:00)
[2018-10-04] MEDS: FOLIC ACID/VITAMIN B COMP W-C TABLET PO SCH (08:56)
[2018-10-04] MEDS: ENOXAPARIN 30MG/0.3ML SYR SUBCUT SCH (08:58)
[2018-10-04] MEDS: DICLOFENAC SODIUM 75MG DR (EC) TABLET PO SCH (09:07)
[2018-10-04] MEDS ORDERED: IODIXANOL 320MG/ML 100 ML BOTTLE IV ONE (12:56)
[2018-10-04] MEDS ORDERED: LIDOCAINE HCL 1% 20ML VIAL (Pyxis) INJ ONE (13:00)
[2018-10-04] MEDS: DIPHENHYDRAMINE 50MG/ML VIAL IV PRN ×2 (13:21→22:09)
[2018-10-04] MEDS ORDERED: MIDAZOLAM HCL 2 MG/2 ML VIAL ONE (13:48)
[2018-10-04] MEDS ORDERED: FENTANYL CITRATE/PF 50MCG/ML 2ML VIAL ONE (13:48)
[2018-10-04 13:50] LABS: PLATELET ESTIMATE NORMAL
[2018-10-04] MEDS ORDERED: NICARDIPINE 100MCG/ML 10ML VIAL (CATH LAB) IV ONE (14:45)
[2018-10-04] MEDS ORDERED: NITROGLYCERIN 50MCG/ML 10ML VIAL (CATH LAB) IV ONE (14:45)
[2018-10-04] MEDS ORDERED: HEPARIN SODIUM 1,000 UNIT/1ML VIAL IV ONE (14:45)
[2018-10-04] MEDS: GABAPENTIN 300MG CAPSULE PO SCH (21:07)
[2018-10-05] MEDS: HYDRALAZINE 20MG/ML VIAL IV SCH ×2 (06:00)
[2018-10-05] MEDS: CLONIDINE 0.1MG TABLET PO SCH (06:00)
[2018-10-05] MEDS: BLOOD SUGAR DIAGNOSTIC STRIP TEST SCH (06:17)
[2018-10-05] MEDS: INSULIN LISPRO 100 UNITS/ML SUBCUT SCH (06:17)
[2018-10-05 08:15] VITALS: BP 146/96
== END 2018-10-05 08:13 | disposition left against medical advice (07) | DRG 286 ==
LOC: ER 17:11 → 7WST 20:29 → EDBEDREQ 20:36 → EDBEDREQTM 20:36 → ENRESERV 22:11 → 3WST 10-04 14:52
PROVIDERS: ADMIT Internal Medicine; ATTEND Internal Medicine
PROC: 5A1D70Z Performance of Urinary Filtration, Intermittent, Less than 6 Hours Per Day (ICD-10-PCS; 2018-10-03)
PROC: 4A023N7 Measurement of Cardiac Sampling and Pressure, Left Heart, Percutaneous Approach (ICD-10-PCS; principal; 2018-10-04)
PROC: B2111ZZ Fluoroscopy of Multiple Coronary Arteries using Low Osmolar Contrast (ICD-10-PCS; 2018-10-04)
PROC: B2151ZZ Fluoroscopy of Left Heart using Low Osmolar Contrast (ICD-10-PCS; 2018-10-04)
DX: I13.2 Hypertensive heart and chronic kidney disease with heart failure and with stage 5 chronic kidney disease, or end stage renal disease (principal); N18.6 End stage renal disease; J44.1 Chronic obstructive pulmonary disease with (acute) exacerbation; I50.32 Chronic diastolic (congestive) heart failure; M62.82 Rhabdomyolysis; R07.89 Other chest pain; I43 Cardiomyopathy in diseases classified elsewhere; E87.6 Hypokalemia; I27.20 Pulmonary hypertension, unspecified; E11.51 Type 2 diabetes mellitus with diabetic peripheral angiopathy without gangrene; E11.22 Type 2 diabetes mellitus with diabetic chronic kidney disease; D63.8 Anemia in other chronic diseases classified elsewhere; I77.1 Stricture of artery; M47.897 Other spondylosis, lumbosacral region; F17.210 Nicotine dependence, cigarettes, uncomplicated; Z53.21 Procedure and treatment not carried out due to patient leaving prior to being seen by health care provider; E83.51 Hypocalcemia; E83.41 Hypermagnesemia; E78.5 Hyperlipidemia, unspecified; Z96.651 Presence of right artificial knee joint; Z99.2 Dependence on renal dialysis; Z95.0 Presence of cardiac pacemaker
CPT/HCPCS: 36415; 71045; 74176; 76705; 80048; 80061; 82550; 82553; 82962; 83735; 83880; 84100; 84443; 84484; 90732; 93005; 93458; 93923; 93970; 94640; 96374; 96375; 99285; C1769; C1887; C1893; J0360; J1200; J1644; J1650; J1815; J2250; J2270; J2405; J3010; J3490; J7620; Q9967

== ENCOUNTER 2018-11-04 12:16 | Emergency (ER) | payer MEDICARE, MEDICAID ==
[~2018-11-04] VITALS: Ht 182.9 cm; Wt 79.0 kg
[2018-11-04] MEDS ORDERED: ACETAMINOPHEN 325MG TABLET PO STA (13:13)
[2018-11-04 14:36] LABS: BASOPHILS % 1.3 % (0.0-2.0); EOSINOPHILS % 2.6 % (0.0-5.0); HEMATOCRIT. 35.4 % (42.0-52.0); LYMPHOCYTES % 33.6 % (20.0-50.0); MEAN CORPUSCULAR HEMOGLOBIN 31.5 pg (28.0-32.0); MEAN PLATELET VOLUME 8.3 fl (7.4-10.4); MONOCYTES % 9.3 % (2.0-8.0); NEUTROPHILS % 53.2 % (40.0-76.0); PLATELET 124 x1000/uL (130-400); RED CELL DISTRIBUTION WIDTH 16.2 % (11.6-14.6)
[2018-11-04 14:41] LABS: CHLORIDE 104 mEq/L (98-107)
[2018-11-04 15:40] VITALS: BP 145/80
== END 2018-11-04 15:42 | disposition home or self-care (01) ==
LOC: ER 12:16
DX: R51 Headache (principal); H70.009 Acute mastoiditis without complications, unspecified ear; E11.22 Type 2 diabetes mellitus with diabetic chronic kidney disease; I12.0 Hypertensive chronic kidney disease with stage 5 chronic kidney disease or end stage renal disease; N18.6 End stage renal disease; F17.210 Nicotine dependence, cigarettes, uncomplicated; Z99.2 Dependence on renal dialysis; Z95.0 Presence of cardiac pacemaker
CPT/HCPCS: 36415; 71045; 83605; 99284

== ENCOUNTER 2018-11-12 18:52 | Inpatient (IN) | payer MEDICARE, MEDICAID ==
[~2018-11-12] VITALS: Ht 177.8 cm; Wt 82.6 kg
[2018-11-12] MEDS ORDERED: MORPHINE SULFATE 4 MG/ML CPJ (NOT FOR IM USE) IV STA (19:50)
[2018-11-12] MEDS ORDERED: ONDANSETRON HCL 4MG/2ML INJ IV STA (19:50)
[2018-11-12 21:00] LABS: BASOPHILS % 1.1 % (0.0-2.0); EOSINOPHILS % 3.7 % (0.0-5.0); HEMATOCRIT. 35.7 % (42.0-52.0); LYMPHOCYTES % 35.6 % (20.0-50.0); MEAN CORPUSCULAR HEMOGLOBIN 31.4 pg (28.0-32.0); MEAN CORPUSCULAR VOLUME 93.8 fL (80.0-94.0); MEAN PLATELET VOLUME 8.4 fl (7.4-10.4); MONOCYTES % 9.5 % (2.0-8.0); NEUTROPHILS % 50.1 % (40.0-76.0); PLATELET 155 x1000/uL (130-400); RED BLOOD CELL COUNT 3.81 mill/uL (4.7-6.1); RED CELL DISTRIBUTION WIDTH 15.8 % (11.6-14.6)
[2018-11-12 21:04] LABS: CHLORIDE 104 mEq/L (98-107)
[2018-11-12 21:13] LABS: PARTIAL THROMBOPLASTIN TIME 26.1 sec (23.4-31.0)
[2018-11-12] MEDS ORDERED: CLONIDINE 0.1MG TABLET PO ONE (21:45)
[2018-11-12] MEDS ORDERED: LORAZEPAM 2MG/ML CPJ IV ONE (22:00)
[2018-11-12] MEDS ORDERED: ONDANSETRON HCL 4MG/2ML INJ IV ONE (22:00)
[2018-11-12] MEDS ORDERED: MORPHINE SULFATE 4 MG/ML CPJ (NOT FOR IM USE) IV ONE (22:00)
[2018-11-12] MEDS ORDERED: DIPHENHYDRAMINE 50MG/ML VIAL IV ONE (22:15)
[2018-11-13] VITALS (7 sets, daily range): BP systolic 137–170; BP diastolic 82–96
[2018-11-13] MEDS ORDERED: CLONIDINE 0.1MG TABLET PO PRN (03:45)
[2018-11-13] MEDS ORDERED: ONDANSETRON HCL 4MG/2ML INJ IV PRN (03:45)
[2018-11-13] MEDS ORDERED: HYDROCODONE/APAP 7.5/325MG 1 TAB TABLET PO PRN (03:45)
[2018-11-13] MEDS ORDERED: CALC667C PO (04:31)
[2018-11-13] MEDS ORDERED: NEPVIT PO (04:31)
[2018-11-13] MEDS ORDERED: VALS80TA30 PO (04:31)
[2018-11-13] MEDS ORDERED: CLON0.1T PO (04:31)
[2018-11-13] MEDS ORDERED: METO-539 PO (04:31)
[2018-11-13] MEDS ORDERED: GABA-531 PO (04:31)
[2018-11-13] MEDS ORDERED: BENA40TA9 PO (04:31)
[2018-11-13] MEDS ORDERED: TRAM50TA3 PO (04:33)
[2018-11-13] MEDS: MORPHINE SULFATE 2 MG/ML CPJ (NOT FOR IM USE) IV PRN (05:48)
[2018-11-13] MEDS: DIPHENHYDRAMINE 50MG/ML VIAL IV PRN ×3 (05:55→22:27)
[2018-11-13] MEDS: AMLODIPINE 10MG TABLET PO SCH (15:21)
[2018-11-13] MEDS: FOLIC ACID/VITAMIN B COMP W-C TABLET PO SCH (15:21)
[2018-11-13 15:39] LABS: CREATINE KINASE 176 IU/L (39-308)
[2018-11-13] MEDS: CALCIUM ACETATE 667MG CAPSULE PO SCH (18:02)
[2018-11-13] MEDS ORDERED: IPRATROPIUM/ALBUTEROL 0.5-3(2.5)MG/3ML NEB HHN PRN (23:15)
[2018-11-14 07:26] LABS: BASOPHILS % 0.9 % (0.0-2.0); EOSINOPHILS % 3.9 % (0.0-5.0); HEMATOCRIT. 33.8 % (42.0-52.0); HEMOGLOBIN. 11.4 g/dL (14.0-18.0); MEAN CORPUSCULAR HEMOGLOBIN 31.4 pg (28.0-32.0); MEAN PLATELET VOLUME 9.2 fl (7.4-10.4); MONOCYTES % 9.9 % (2.0-8.0); NEUTROPHILS % 57.3 % (40.0-76.0); PLATELET 161 x1000/uL (130-400); RED BLOOD CELL COUNT 3.63 mill/uL (4.7-6.1)
[2018-11-14] MEDS: FOLIC ACID/VITAMIN B COMP W-C TABLET PO SCH (08:44)
[2018-11-14] MEDS: CALCIUM ACETATE 667MG CAPSULE PO SCH ×2 (08:44→13:17)
[2018-11-14] MEDS: DIPHENHYDRAMINE 50MG/ML VIAL IV PRN ×2 (08:55→14:47)
[2018-11-14] MEDS: AMLODIPINE 10MG TABLET PO SCH (09:00)
[2018-11-14 09:28] LABS: CHLORIDE 108 mEq/L (98-107)
[2018-11-14 09:42] LABS: PHOSPHORUS 5.9 mg/dL (2.5-4.9)
[2018-11-14 12:45] VITALS: BP 91/62
[2018-11-14] MEDS: MORPHINE SULFATE 2 MG/ML CPJ (NOT FOR IM USE) IV PRN (13:21)
== END 2018-11-14 17:55 | disposition home or self-care (01) | DRG 551 ==
LOC: ER 18:52 → EDBD 18:52 → MERGE 21:53 → 7WST 21:53 → EDBEDREQTM 21:58 → EDBEDREQ 21:58 → ENRESERV 11-13 01:57
PROVIDERS: ADMIT Hospitalist; ATTEND Hospitalist
DX: M54.5 Low back pain (principal); N18.6 End stage renal disease; I13.2 Hypertensive heart and chronic kidney disease with heart failure and with stage 5 chronic kidney disease, or end stage renal disease; I43 Cardiomyopathy in diseases classified elsewhere; I50.32 Chronic diastolic (congestive) heart failure; J98.11 Atelectasis; M48.02 Spinal stenosis, cervical region; E11.22 Type 2 diabetes mellitus with diabetic chronic kidney disease; Z96.651 Presence of right artificial knee joint; F32.9 Major depressive disorder, single episode, unspecified; E11.51 Type 2 diabetes mellitus with diabetic peripheral angiopathy without gangrene; E78.5 Hyperlipidemia, unspecified; F17.210 Nicotine dependence, cigarettes, uncomplicated; F41.9 Anxiety disorder, unspecified; J44.9 Chronic obstructive pulmonary disease, unspecified; Z95.0 Presence of cardiac pacemaker; Z99.2 Dependence on renal dialysis; V89.1XXA Person injured in unspecified nonmotor-vehicle accident, nontraffic, initial encounter; V49.88XA Car occupant (driver) (passenger) injured in other specified transport accidents, initial encounter; Y93.89 Activity, other specified; Y92.511 Restaurant or cafe as the place of occurrence of the external cause; Y99.8 Other external cause status
CPT/HCPCS: 36415; 71045; 72128; 72131; 73630; 82550; 83880; 84100; 84484; 93005; 93970; 94640; 96374; 96375; 96376; 97162; 99285; J1200; J2060; J2270; J2405

== ENCOUNTER 2018-12-17 10:37 | Emergency (ER) | payer MEDICARE, MEDICAID ==
[~2018-12-17] VITALS: Ht 175.3 cm; Wt 85.0 kg
[~2018-12-17 10:37] MED LIST changes: +CLON0.1T PO; +METO-539 PO; +TRAM50TA3 PO; +VALS80TA30 PO
[2018-12-17 13:32] VITALS: BP 147/92
== END 2018-12-17 13:35 | disposition home or self-care (01) ==
LOC: ER 10:37
DX: S16.1XXA Strain of muscle, fascia and tendon at neck level, initial encounter (principal); S39.012A Strain of muscle, fascia and tendon of lower back, initial encounter; R51 Headache; E11.9 Type 2 diabetes mellitus without complications; I10 Essential (primary) hypertension; Z87.448 Personal history of other diseases of urinary system; Z79.84 Long term (current) use of oral hypoglycemic drugs; Z95.0 Presence of cardiac pacemaker; V89.2XXA Person injured in unspecified motor-vehicle accident, traffic, initial encounter; Y93.89 Activity, other specified; Y92.410 Unspecified street and highway as the place of occurrence of the external cause; Y99.8 Other external cause status; Z79.899 Other long term (current) drug therapy
CPT/HCPCS: 99284

== ENCOUNTER 2019-09-19 19:00 | Emergency (ER) | payer MEDICARE, MEDICAID ==
[~2019-09-19] VITALS: Ht 177.8 cm; Wt 91.0 kg
[2019-09-19] MEDS ORDERED: HYDROCODONE/ACETAMINOPHEN 5/325MG TABLET PO STA (21:31)
[2019-09-19 22:08] VITALS: BP 148/94
== END 2019-09-19 22:32 | disposition home or self-care (01) ==
LOC: ER 19:00
DX: M25.572 Pain in left ankle and joints of left foot (principal); M54.89 Other dorsalgia; E11.22 Type 2 diabetes mellitus with diabetic chronic kidney disease; I12.0 Hypertensive chronic kidney disease with stage 5 chronic kidney disease or end stage renal disease; N18.6 End stage renal disease; Z99.2 Dependence on renal dialysis; Z95.0 Presence of cardiac pacemaker; W03.XXXA Other fall on same level due to collision with another person, initial encounter; Y93.89 Activity, other specified; Y92.018 Other place in single-family (private) house as the place of occurrence of the external cause
CPT/HCPCS: 72100; 73610; 93005; 99284

== ENCOUNTER 2020-03-07 08:08 | Inpatient (IN) | payer MEDICARE, MEDICAID ==
[~2020-03-07] VITALS: Ht 185.4 cm; Wt 91.3 kg
[2020-03-07] MEDS ORDERED: MORPHINE SULFATE 4 MG/ML CPJ (NOT FOR IM USE) IV STA (09:11)
[2020-03-07] MEDS ORDERED: ONDANSETRON HCL 4MG/2ML INJ IV STA (09:11)
[2020-03-07 09:38] LABS: BASOPHILS % 1.2 % (0.0-2.0); EOSINOPHILS % 4.1 % (0.0-5.0); HEMATOCRIT. 34.9 % (42.0-52.0); HEMOGLOBIN. 11.8 g/dL (14.0-18.0); LYMPHOCYTES % 22.9 % (20.0-50.0); MEAN CORPUSCULAR HEMOGLOBIN 31.5 pg (28.0-32.0); MEAN CORPUSCULAR VOLUME 92.9 fL (80.0-94.0); MEAN PLATELET VOLUME 8.8 fl (7.4-10.4); MONOCYTES % 9.6 % (2.0-8.0); NEUTROPHILS % 62.2 % (40.0-76.0); PLATELET 144 x1000/uL (130-400); RED BLOOD CELL COUNT 3.76 mill/uL (4.7-6.1); RED CELL DISTRIBUTION WIDTH 14.5 % (11.6-14.6)
[2020-03-07] MEDS ORDERED: MORPHINE SULFATE 4 MG/ML CPJ (NOT FOR IM USE) IV ONE (10:15)
[2020-03-07] MEDS ORDERED: DEXAMETHASONE 4MG/ML 1ML VIAL IV ONE (10:15)
[2020-03-07] MEDS ORDERED: CYCLOBENZAPRINE 10MG TABLET PO ONE (14:15)
[2020-03-07] MEDS ORDERED: MORPHINE SULFATE 4 MG/ML CPJ (NOT FOR IM USE) IV NR (15:15)
[2020-03-07] MEDS: CLONIDINE 0.1MG TABLET PO PRN (15:27)
[2020-03-07] MEDS ORDERED: ONDANSETRON HCL 4MG/2ML INJ IV PRN ×2 (15:30)
[2020-03-07] MEDS ORDERED: ACETAMINOPHEN 325MG TABLET PO PRN (15:30)
[2020-03-07] MEDS: AMLODIPINE 10MG TABLET PO SCH (15:41)
[2020-03-07] MEDS: LOSARTAN POTASSIUM 100 MG TABLET PO SCH (17:10)
[2020-03-07 17:22] VITALS: BP 189/106
[2020-03-07] MEDS ORDERED: TEMAZEPAM 15MG CAPSULE PO PRN (17:30)
[2020-03-07] MEDS: SEVELAMER CARBONATE 800 MG TABLET PO SCH (18:02)
[2020-03-07 20:00] VITALS: BP 151/83
[2020-03-07] MEDS: HYDROCODONE/ACETAMINOPHEN 10/325MG TABLET PO PRN (20:01)
[2020-03-07] MEDS: CARVEDILOL 12.5MG TABLET PO SCH (20:04)
[2020-03-07] MEDS: DOXERCALCIFEROL 2.5 MCG CAPSULE PO SCH (21:55)
[2020-03-07] MEDS: MORPHINE SULFATE 2 MG/ML CPJ (NOT FOR IM USE) IV PRN (23:45)
[2020-03-08] VITALS: BP 130/60
[2020-03-08 04:00] VITALS: BP 158/98
[2020-03-08] MEDS: MORPHINE SULFATE 2 MG/ML CPJ (NOT FOR IM USE) IV PRN ×3 (05:03→22:40)
[2020-03-08 06:54] LABS: BASOPHILS % 0.9 % (0.0-2.0); EOSINOPHILS % 1.1 % (0.0-5.0); HEMATOCRIT. 34.3 % (42.0-52.0); HEMOGLOBIN. 11.7 g/dL (14.0-18.0); LYMPHOCYTES % 28.3 % (20.0-50.0); MEAN CORPUSCULAR HEMOGLOBIN 31.6 pg (28.0-32.0); MEAN CORPUSCULAR VOLUME 92.9 fL (80.0-94.0); MEAN PLATELET VOLUME 8.7 fl (7.4-10.4); MONOCYTES % 11.5 % (2.0-8.0); NEUTROPHILS % 58.2 % (40.0-76.0); PLATELET 158 x1000/uL (130-400); RED BLOOD CELL COUNT 3.69 mill/uL (4.7-6.1); RED CELL DISTRIBUTION WIDTH 14.5 % (11.6-14.6)
[2020-03-08 07:18] LABS: PHOSPHORUS 4.8 mg/dL (2.5-4.9)
[2020-03-08 08:00] VITALS: BP 112/82
[2020-03-08] MEDS: LOSARTAN POTASSIUM 100 MG TABLET PO SCH (08:46)
[2020-03-08] MEDS: CARVEDILOL 12.5MG TABLET PO SCH ×2 (08:46→21:00)
[2020-03-08] MEDS: AMLODIPINE 10MG TABLET PO SCH (08:47)
[2020-03-08] MEDS: SEVELAMER CARBONATE 800 MG TABLET PO SCH ×3 (08:52→17:15)
[2020-03-08] MEDS ORDERED: DOXERCALCIFEROL 0.5MCG CAPSULE PO SCH (09:00)
[2020-03-08 12:00] VITALS: BP 174/94
[2020-03-08 16:00] VITALS: BP 155/75
[2020-03-08] MEDS: DIPHENHYDRAMINE 12.5MG/5ML UDC PO PRN (19:38)
[2020-03-08 20:00] VITALS: BP 194/97
[2020-03-09] VITALS: BP 150/81
[2020-03-09 07:30] LABS: BASOPHILS % 0.7 % (0.0-2.0); EOSINOPHILS % 4.3 % (0.0-5.0); HEMATOCRIT. 34.7 % (42.0-52.0); HEMOGLOBIN. 11.7 g/dL (14.0-18.0); LYMPHOCYTES % 34.6 % (20.0-50.0); MEAN CORPUSCULAR HEMOGLOBIN 31.6 pg (28.0-32.0); MEAN CORPUSCULAR VOLUME 93.3 fL (80.0-94.0); MEAN PLATELET VOLUME 9.2 fl (7.4-10.4); MONOCYTES % 8.1 % (2.0-8.0); NEUTROPHILS % 52.3 % (40.0-76.0); PLATELET 144 x1000/uL (130-400); RED BLOOD CELL COUNT 3.72 mill/uL (4.7-6.1); RED CELL DISTRIBUTION WIDTH 14.4 % (11.6-14.6)
[2020-03-09 08:00] VITALS: BP 144/88
[2020-03-09] MEDS: LOSARTAN POTASSIUM 100 MG TABLET PO SCH (08:05)
[2020-03-09] MEDS: HYDROCODONE/ACETAMINOPHEN 10/325MG TABLET PO PRN ×2 (08:05→17:31)
[2020-03-09] MEDS: AMLODIPINE 10MG TABLET PO SCH (08:06)
[2020-03-09] MEDS: CARVEDILOL 12.5MG TABLET PO SCH ×3 (08:06→22:35)
[2020-03-09] MEDS: SEVELAMER CARBONATE 800 MG TABLET PO SCH ×4 (08:09→18:22)
[2020-03-09 11:53] VITALS: BP 154/87
[2020-03-09 16:07] VITALS: BP 127/72
[2020-03-09] MEDS: DIPHENHYDRAMINE 12.5MG/5ML UDC PO PRN (17:28)
[2020-03-09 20:00] VITALS: BP 147/82
[2020-03-09] MEDS: MORPHINE SULFATE 2 MG/ML CPJ (NOT FOR IM USE) IV PRN (22:31)
[2020-03-10] VITALS: BP 160/88
[2020-03-10] MEDS: CLONIDINE 0.1MG TABLET PO PRN (02:11)
[2020-03-10 04:00] VITALS: BP 144/83
[2020-03-10 08:00] VITALS: BP 145/83
[2020-03-10 08:02] LABS: BASOPHILS % 1.1 % (0.0-2.0); EOSINOPHILS % 4.5 % (0.0-5.0); HEMATOCRIT. 32.4 % (42.0-52.0); HEMOGLOBIN. 10.8 g/dL (14.0-18.0); LYMPHOCYTES % 33.2 % (20.0-50.0); MEAN CORPUSCULAR VOLUME 93.2 fL (80.0-94.0); MEAN PLATELET VOLUME 8.8 fl (7.4-10.4); MONOCYTES % 10.7 % (2.0-8.0); NEUTROPHILS % 50.5 % (40.0-76.0); PLATELET 136 x1000/uL (130-400); RED BLOOD CELL COUNT 3.48 mill/uL (4.7-6.1); RED CELL DISTRIBUTION WIDTH 14.3 % (11.6-14.6)
[2020-03-10] MEDS: DOXERCALCIFEROL 2.5 MCG CAPSULE PO SCH (08:56)
[2020-03-10] MEDS: LOSARTAN POTASSIUM 100 MG TABLET PO SCH (08:56)
[2020-03-10] MEDS: CARVEDILOL 12.5MG TABLET PO SCH ×2 (08:58→21:37)
[2020-03-10] MEDS: AMLODIPINE 10MG TABLET PO SCH (08:59)
[2020-03-10] MEDS: SEVELAMER CARBONATE 800 MG TABLET PO SCH ×2 (09:00→18:18)
[2020-03-10] MEDS: HYDROCODONE/ACETAMINOPHEN 10/325MG TABLET PO PRN ×2 (09:01→19:48)
[2020-03-10 12:00] VITALS: BP 149/89
[2020-03-10] MEDS ORDERED: SODIUM POLYSTYRENE SULFONATE 15 G/60 ML BOT PO NR (13:00)
[2020-03-10 16:00] VITALS: BP 151/84
[2020-03-10 20:00] VITALS: BP 153/79
[2020-03-10] MEDS ORDERED: LORAZEPAM 2MG/ML CPJ IV PRN (20:00)
[2020-03-10] MEDS ORDERED: LORAZEPAM 2MG/ML CPJ IV NR (20:00)
[2020-03-11] VITALS: BP 160/85
[2020-03-11 04:00] VITALS: BP 176/90
[2020-03-11 07:34] LABS: BASOPHILS % 0.7 % (0.0-2.0); EOSINOPHILS % 4.4 % (0.0-5.0); HEMATOCRIT. 34.6 % (42.0-52.0); HEMOGLOBIN. 11.6 g/dL (14.0-18.0); LYMPHOCYTES % 24.5 % (20.0-50.0); MEAN CORPUSCULAR HEMOGLOBIN 31.2 pg (28.0-32.0); MEAN CORPUSCULAR VOLUME 92.7 fL (80.0-94.0); MEAN PLATELET VOLUME 8.7 fl (7.4-10.4); MONOCYTES % 8.4 % (2.0-8.0); PLATELET 141 x1000/uL (130-400); RED BLOOD CELL COUNT 3.73 mill/uL (4.7-6.1); RED CELL DISTRIBUTION WIDTH 14.7 % (11.6-14.6)
[2020-03-11 08:00] VITALS: BP 139/84
[2020-03-11 08:30] LABS: PHOSPHORUS 4.5 mg/dL (2.5-4.9)
[2020-03-11] MEDS: LOSARTAN POTASSIUM 100 MG TABLET PO SCH (08:37)
[2020-03-11] MEDS: CARVEDILOL 12.5MG TABLET PO SCH ×2 (08:37→22:35)
[2020-03-11] MEDS: DOXERCALCIFEROL 2.5 MCG CAPSULE PO SCH (08:37)
[2020-03-11] MEDS: AMLODIPINE 10MG TABLET PO SCH (08:37)
[2020-03-11] MEDS ORDERED: SODIUM BICARBONATE 4% (2.4MEQ) 5ML VIAL IV ONE (10:24)
[2020-03-11] MEDS ORDERED: LIDOCAINE HCL 1% 20ML VIAL (Pyxis) INJ ONE (10:25)
[2020-03-11] MEDS: HYDROCODONE/ACETAMINOPHEN 10/325MG TABLET PO PRN (11:24)
[2020-03-11 12:00] VITALS: BP 163/84
[2020-03-11] MEDS: DIPHENHYDRAMINE 12.5MG/5ML UDC PO PRN (12:55)
[2020-03-11] MEDS: SEVELAMER CARBONATE 800 MG TABLET PO SCH ×2 (12:55→17:36)
[2020-03-11 20:00] VITALS: BP 122/66
[2020-03-12] VITALS: BP 163/83
[2020-03-12 04:00] VITALS: BP 157/78
[2020-03-12 08:00] VITALS: BP 164/92
[2020-03-12] MEDS: DOXERCALCIFEROL 2.5 MCG CAPSULE PO SCH (09:44)
[2020-03-12] MEDS: CARVEDILOL 12.5MG TABLET PO SCH ×2 (09:44→21:32)
[2020-03-12] MEDS: LOSARTAN POTASSIUM 100 MG TABLET PO SCH (09:45)
[2020-03-12] MEDS: AMLODIPINE 10MG TABLET PO SCH (09:45)
[2020-03-12] MEDS: SEVELAMER CARBONATE 800 MG TABLET PO SCH ×3 (09:46→16:53)
[2020-03-12 12:00] VITALS: BP 168/70
[2020-03-12] MEDS: MORPHINE SULFATE 2 MG/ML CPJ (NOT FOR IM USE) IV PRN (12:03)
[2020-03-12] MEDS: CLONIDINE 0.1MG TABLET PO PRN (12:54)
[2020-03-12 16:00] VITALS: BP 104/56
[2020-03-12 20:00] VITALS: BP 182/81
[2020-03-12] MEDS ORDERED: TEMAZEPAM 15MG CAPSULE PO PRN (21:15)
[2020-03-12] MEDS: HYDROCODONE/ACETAMINOPHEN 5/325MG TABLET PO PRN (21:32)
[2020-03-13] VITALS: BP 126/68
[2020-03-13 04:00] VITALS: BP 188/95
[2020-03-13] MEDS: HYDROCODONE/ACETAMINOPHEN 5/325MG TABLET PO PRN (05:08)
[2020-03-13] MEDS: CLONIDINE 0.1MG TABLET PO PRN (05:42)
[2020-03-13 08:00] VITALS: BP 114/72
[2020-03-13] MEDS: SEVELAMER CARBONATE 800 MG TABLET PO SCH ×2 (09:28→12:50)
[2020-03-13] MEDS: DOXERCALCIFEROL 2.5 MCG CAPSULE PO SCH (09:29)
[2020-03-13] MEDS: CARVEDILOL 12.5MG TABLET PO SCH (09:29)
[2020-03-13] MEDS: LOSARTAN POTASSIUM 100 MG TABLET PO SCH (09:29)
[2020-03-13] MEDS: AMLODIPINE 10MG TABLET PO SCH (09:30)
[2020-03-13 12:00] VITALS: BP 153/84
[2020-03-13 16:00] VITALS: BP 156/79
[2020-03-13 16:11] VITALS: BP 153/84
== END 2020-03-13 17:33 | DRG 551 ==
LOC: ER 08:15 → 6EST 13:37 → EDBEDREQ 14:01 → ENRESERV 14:26
PROVIDERS: ADMIT Internal Medicine; ATTEND Internal Medicine
PROC: 5A1D70Z Performance of Urinary Filtration, Intermittent, Less than 6 Hours Per Day (ICD-10-PCS; 2020-03-08)
PROC: 02HV33Z Insertion of Infusion Device into Superior Vena Cava, Percutaneous Approach (ICD-10-PCS; principal; 2020-03-11)
PROC: B548ZZA Ultrasonography of Superior Vena Cava, Guidance (ICD-10-PCS; 2020-03-11)
PROC: B5181ZA Fluoroscopy of Superior Vena Cava using Low Osmolar Contrast, Guidance (ICD-10-PCS; 2020-03-11)
PROC: 5A1D70Z Performance of Urinary Filtration, Intermittent, Less than 6 Hours Per Day (ICD-10-PCS; 2020-03-11)
PROC: 5A1D70Z Performance of Urinary Filtration, Intermittent, Less than 6 Hours Per Day (ICD-10-PCS; 2020-03-13)
DX: M48.061 Spinal stenosis, lumbar region without neurogenic claudication (principal); N18.6 End stage renal disease; I50.23 Acute on chronic systolic (congestive) heart failure; N25.81 Secondary hyperparathyroidism of renal origin; I43 Cardiomyopathy in diseases classified elsewhere; I13.2 Hypertensive heart and chronic kidney disease with heart failure and with stage 5 chronic kidney disease, or end stage renal disease; D72.819 Decreased white blood cell count, unspecified; D63.8 Anemia in other chronic diseases classified elsewhere; J44.9 Chronic obstructive pulmonary disease, unspecified; Z95.0 Presence of cardiac pacemaker; I27.20 Pulmonary hypertension, unspecified; M51.27 Other intervertebral disc displacement, lumbosacral region; F40.240 Claustrophobia; M48.02 Spinal stenosis, cervical region; F32.9 Major depressive disorder, single episode, unspecified; Z96.651 Presence of right artificial knee joint; F17.210 Nicotine dependence, cigarettes, uncomplicated; E11.22 Type 2 diabetes mellitus with diabetic chronic kidney disease; E11.51 Type 2 diabetes mellitus with diabetic peripheral angiopathy without gangrene; M47.26 Other spondylosis with radiculopathy, lumbar region; E78.5 Hyperlipidemia, unspecified; Z79.4 Long term (current) use of insulin; Z79.899 Other long term (current) drug therapy; Z91.81 History of falling; Z71.6 Tobacco abuse counseling; R26.2 Difficulty in walking, not elsewhere classified
CPT/HCPCS: 36415; 36573; 71045; 73502; 80048; 83735; 83970; 84100; 85025; 93005; 93306; 97116; 97162; 97166; 97530; 97535; 99285; C1725; J1100; J2060; J2270; J2405; J3490; J7040; Q0163

== ENCOUNTER 2020-03-16 16:39 | Inpatient (IN) | payer MEDICARE, MEDICAID ==
[~2020-03-16] VITALS: Ht 182.9 cm; Wt 87.5 kg
[2020-03-16 16:25] VITALS: BP 172/78
[2020-03-16 16:50] VITALS: BP 172/78
[2020-03-16] MEDS ORDERED: LACTULOSE 20G/30ML UDC PO PRN (18:45)
[2020-03-16] MEDS ORDERED: ONDANSETRON HCL 4MG/2ML INJ IV PRN (18:45)
[2020-03-16] MEDS ORDERED: ACETAMINOPHEN 325MG TABLET PO PRN (18:45)
[2020-03-16] MEDS ORDERED: BISACODYL 5MG TABLET PO PRN (18:45)
[2020-03-16] MEDS ORDERED: HYDROCODONE/ACETAMINOPHEN 5/325MG TABLET PO PRN (18:45)
[2020-03-16 20:23] VITALS: BP 142/74
[2020-03-16] MEDS: CARVEDILOL 12.5MG TABLET PO SCH (20:53)
[2020-03-16] MEDS: HYDROCODONE/ACETAMINOPHEN 10/325MG TABLET PO PRN (20:58)
[2020-03-16] MEDS: TEMAZEPAM 15MG CAPSULE PO PRN (22:30)
[2020-03-17] VITALS (44 sets, daily range): BP systolic 108–158; BP diastolic 43–85
[2020-03-17] MEDS ORDERED: DEXT 5%/0.45% NACL 1000ML 1,000 ML IV SCH (00:15)
[2020-03-17 06:58] LABS: PROTHROMBIN TIME 10.4 sec (9.6-11.0)
[2020-03-17 07:10] LABS: BASOPHILS % 1.1 % (0.0-2.0); EOSINOPHILS % 4.4 % (0.0-5.0); HEMATOCRIT. 30.2 % (42.0-52.0); HEMOGLOBIN. 10.3 g/dL (14.0-18.0); LYMPHOCYTES % 31.6 % (20.0-50.0); MEAN CORPUSCULAR HEMOGLOBIN 31.2 pg (28.0-32.0); MEAN CORPUSCULAR VOLUME 91.5 fL (80.0-94.0); MONOCYTES % 12.1 % (2.0-8.0); NEUTROPHILS % 50.8 % (40.0-76.0); PLATELET 143 x1000/uL (130-400)
[2020-03-17] MEDS: SEVELAMER CARBONATE 800 MG TABLET PO SCH ×2 (07:50→17:00)
[2020-03-17] MEDS ORDERED: THROMBIN (BOVINE) 5000 UNITS/VIAL TOP ONE (08:05)
[2020-03-17] MEDS ORDERED: BACITRACIN 15GM TUBE TOP ONE (08:05)
[2020-03-17] MEDS ORDERED: SODIUM CHLORIDE 0.9% INJ 10ML FLUSH IVF ONE (08:06)
[2020-03-17] MEDS ORDERED: BACITRACIN 50,000 UNITS/VIAL ONE (08:06)
[2020-03-17] MEDS: AMLODIPINE 10MG TABLET PO SCH (08:48)
[2020-03-17] MEDS: CARVEDILOL 12.5MG TABLET PO SCH ×2 (08:49→20:06)
[2020-03-17] MEDS: LOSARTAN POTASSIUM 100 MG TABLET PO SCH (08:49)
[2020-03-17] MEDS: DOCUSATE SODIUM 100MG CAPSULE PO SCH ×2 (08:51→17:00)
[2020-03-17] MEDS: DOXERCALCIFEROL 2.5 MCG CAPSULE PO SCH (08:51)
[2020-03-17] MEDS ORDERED: ROCURONIUM BROMIDE 10MG/ML VIAL 5ML IV ONE (09:42)
[2020-03-17] MEDS ORDERED: NEOSTIGMINE METHYLSULFATE 1MG/ML 10 ML VIAL ONE (09:42)
[2020-03-17] MEDS ORDERED: PROPOFOL 200MG/20ML VIAL IV ONE (09:42)
[2020-03-17] MEDS ORDERED: FENTANYL CITRATE/PF 50MCG/ML 2ML VIAL ONE (09:42)
[2020-03-17] MEDS ORDERED: MIDAZOLAM HCL 2 MG/2 ML VIAL ONE (09:43)
[2020-03-17] MEDS ORDERED: GLYCOPYRROLATE 0.2 MG/ML 2ML VIAL ONE ×2 (09:43→11:40)
[2020-03-17] MEDS ORDERED: DEXAMETHASONE 4MG/ML 1ML VIAL ONE (09:45)
[2020-03-17] MEDS ORDERED: ONDANSETRON HCL 4MG/2ML INJ ONE (09:45)
[2020-03-17] MEDS ORDERED: HYDROMORPHONE HCL/PF 2MG/ML (OR) ONE (11:55)
[2020-03-17] MEDS ORDERED: LIDOCAINE HCL/PF 1% 10 MG/ML 5ML VIAL ONE (12:04)
[2020-03-17] MEDS ORDERED: SODIUM CHLORIDE 0.9% 10ML VIAL ONE (12:04)
[2020-03-17] MEDS: DEXT 5%/0.9% NACL 1,000 ML IV SCH (12:32)
[2020-03-17] MEDS: MORPHINE SULFATE 4 MG/ML CPJ (NOT FOR IM USE) IV PRN ×3 (12:32→18:40)
[2020-03-17] MEDS: DEXAMETHASONE 4MG/ML 1ML VIAL IV SCH ×3 (12:32→23:37)
[2020-03-17] MEDS ORDERED: ONDANSETRON INJ IV PRN (13:00)
[2020-03-17] MEDS ORDERED: NALOXONE INJ IV PRN (13:00)
[2020-03-17] MEDS ORDERED: HYDROMORPHONE PCA 10MG/50ML IV PRN (13:00)
[2020-03-17] MEDS ORDERED: CEFAZOLIN SODIUM 1000MG/VIAL IV SCH (14:00)
[2020-03-17] MEDS: NICARDIPINE 100 MG in SODIUM CHLORIDE 0.9% 60 ML IV PRN ×2 (15:01→23:37)
[2020-03-17] MEDS: CEFAZOLIN 1000MG PREMIX 50 ML IV SCH (15:02)
[2020-03-17] MEDS ORDERED: IPRATROPIUM/ALBUTEROL 0.5-3(2.5)MG/3ML NEB HHN PRN (15:45)
[2020-03-18] VITALS (84 sets, daily range): BP systolic 40–168; BP diastolic 30–102
[2020-03-18] MEDS: DEXT 5%/0.9% NACL 1,000 ML IV SCH ×2 (01:13→15:09)
[2020-03-18] MEDS: DIPHENHYDRAMINE 12.5MG/5ML UDC PO PRN (02:22)
[2020-03-18] MEDS: DEXAMETHASONE 4MG/ML 1ML VIAL IV SCH ×2 (05:41→13:04)
[2020-03-18 06:34] LABS: BASOPHILS % 0.3 % (0.0-2.0); HEMATOCRIT. 29.6 % (42.0-52.0); HEMOGLOBIN. 10.2 g/dL (14.0-18.0); LYMPHOCYTES % 8.4 % (20.0-50.0); MEAN CORPUSCULAR HEMOGLOBIN 31.5 pg (28.0-32.0); MEAN CORPUSCULAR VOLUME 91.4 fL (80.0-94.0); MEAN PLATELET VOLUME 9.5 fl (7.4-10.4); NEUTROPHILS % 89.3 % (40.0-76.0); PLATELET 157 x1000/uL (130-400); RED BLOOD CELL COUNT 3.24 mill/uL (4.7-6.1)
[2020-03-18 06:49] LABS: PHOSPHORUS 5.1 mg/dL (2.5-4.9)
[2020-03-18] MEDS ORDERED: SODIUM BICARBONATE 8.4% 1 MEQ/ML 50ML SYR IV NR (08:30)
[2020-03-18] MEDS ORDERED: INSULIN REGULAR (HUMULIN R) 300UNITS/3ML IV NR (08:30)
[2020-03-18] MEDS ORDERED: DEXTROSE 50% WATER 50ML SYRINGE IV NR (08:30)
[2020-03-18] MEDS ORDERED: SODIUM POLYSTYRENE SULFONATE 15 G/60 ML BOT PO NR (08:30)
[2020-03-18] MEDS ORDERED: CALCIUM GLUCONATE 100MG/ML 10ML VIAL IV ONE (08:30)
[2020-03-18] MEDS: DOCUSATE SODIUM 100MG CAPSULE PO SCH ×2 (09:00→18:49)
[2020-03-18] MEDS ORDERED: CALCIUM GLUCONATE 1000 MG in DEXTROSE 5% WATER 100 ML IV NR (09:00)
[2020-03-18] MEDS: SEVELAMER CARBONATE 800 MG TABLET PO SCH ×3 (09:21→18:49)
[2020-03-18] MEDS: MORPHINE SULFATE 4 MG/ML CPJ (NOT FOR IM USE) IV PRN (10:55)
[2020-03-18] MEDS: NICARDIPINE 100 MG in SODIUM CHLORIDE 0.9% 60 ML IV PRN (13:03)
[2020-03-18] MEDS: HYDROCODONE/ACETAMINOPHEN 10/325MG TABLET PO PRN (15:04)
[2020-03-18] MEDS: AMLODIPINE 10MG TABLET PO SCH (15:05)
[2020-03-18] MEDS: LOSARTAN POTASSIUM 100 MG TABLET PO SCH (15:06)
[2020-03-18] MEDS: CARVEDILOL 12.5MG TABLET PO SCH ×2 (15:06→19:53)
[2020-03-18] MEDS: DOXERCALCIFEROL 2.5 MCG CAPSULE PO SCH (15:06)
[2020-03-18] MEDS: CEFAZOLIN 1000MG PREMIX 50 ML IV SCH (15:09)
[2020-03-18 19:06] LABS: HEMATOCRIT. 27.8 % (42.0-52.0); HEMOGLOBIN. 9.6 g/dL (14.0-18.0); MEAN CORPUSCULAR HEMOGLOBIN 31.8 pg (28.0-32.0); MEAN CORPUSCULAR VOLUME 92.5 fL (80.0-94.0); MEAN PLATELET VOLUME 9.3 fl (7.4-10.4); PLATELET 141 x1000/uL (130-400); RED BLOOD CELL COUNT 3.01 mill/uL (4.7-6.1); RED CELL DISTRIBUTION WIDTH 14.5 % (11.6-14.6)
[2020-03-18 19:15] LABS: PHOSPHORUS 5.3 mg/dL (2.5-4.9)
[2020-03-18 19:38] LABS: PLATELET ESTIMATE NORMAL
[2020-03-18] MEDS: TEMAZEPAM 15MG CAPSULE PO PRN (23:16)
[2020-03-19] VITALS (22 sets, daily range): BP systolic 79–191; BP diastolic 59–95
[2020-03-19] MEDS: DEXT 5%/0.9% NACL 1,000 ML IV SCH (05:01)
[2020-03-19] MEDS: DIPHENHYDRAMINE 12.5MG/5ML UDC PO PRN ×2 (05:06→19:02)
[2020-03-19 05:39] LABS: BASOPHILS % 0.2 % (0.0-2.0); HEMATOCRIT. 27.4 % (42.0-52.0); HEMOGLOBIN. 9.4 g/dL (14.0-18.0); LYMPHOCYTES % 4.7 % (20.0-50.0); MEAN CORPUSCULAR HEMOGLOBIN 31.8 pg (28.0-32.0); MEAN CORPUSCULAR VOLUME 92.9 fL (80.0-94.0); MEAN PLATELET VOLUME 9.4 fl (7.4-10.4); MONOCYTES % 5.7 % (2.0-8.0); NEUTROPHILS % 89.4 % (40.0-76.0); PLATELET 138 x1000/uL (130-400); RED BLOOD CELL COUNT 2.95 mill/uL (4.7-6.1); RED CELL DISTRIBUTION WIDTH 14.1 % (11.6-14.6)
[2020-03-19] MEDS: CLONIDINE 0.1MG TABLET PO PRN (06:11)
[2020-03-19] MEDS: DOXERCALCIFEROL 2.5 MCG CAPSULE PO SCH (08:04)
[2020-03-19] MEDS: DOCUSATE SODIUM 100MG CAPSULE PO SCH ×2 (08:04→17:02)
[2020-03-19] MEDS: SEVELAMER CARBONATE 800 MG TABLET PO SCH ×3 (08:04→17:02)
[2020-03-19] MEDS: AMLODIPINE 10MG TABLET PO SCH (08:05)
[2020-03-19] MEDS: CARVEDILOL 12.5MG TABLET PO SCH ×2 (08:05→20:36)
[2020-03-19] MEDS: LOSARTAN POTASSIUM 100 MG TABLET PO SCH (08:05)
[2020-03-19] MEDS: MORPHINE SULFATE 4 MG/ML CPJ (NOT FOR IM USE) IV PRN (09:52)
[2020-03-19] MEDS: CEFAZOLIN 1000MG PREMIX 50 ML IV SCH (13:41)
[2020-03-19] MEDS: HYDROCODONE/ACETAMINOPHEN 10/325MG TABLET PO PRN ×2 (15:06→20:37)
[2020-03-19] MEDS: TEMAZEPAM 15MG CAPSULE PO PRN (22:16)
[2020-03-20] VITALS: BP 146/68
[2020-03-20] MEDS: HYDROCODONE/ACETAMINOPHEN 10/325MG TABLET PO PRN ×4 (02:50→20:03)
[2020-03-20] MEDS: DEXT 5%/0.9% NACL 1,000 ML IV SCH ×2 (02:54→20:24)
[2020-03-20 04:00] VITALS: BP 144/62
[2020-03-20 06:22] LABS: BASOPHILS % 0.1 % (0.0-2.0); EOSINOPHILS % 0.2 % (0.0-5.0); HEMATOCRIT. 26.1 % (42.0-52.0); LYMPHOCYTES % 14.1 % (20.0-50.0); MEAN CORPUSCULAR HEMOGLOBIN 31.9 pg (28.0-32.0); MEAN CORPUSCULAR VOLUME 92.4 fL (80.0-94.0); MEAN PLATELET VOLUME 9.7 fl (7.4-10.4); MONOCYTES % 5.8 % (2.0-8.0); NEUTROPHILS % 79.8 % (40.0-76.0); PLATELET 121 x1000/uL (130-400); RED BLOOD CELL COUNT 2.83 mill/uL (4.7-6.1); RED CELL DISTRIBUTION WIDTH 14.3 % (11.6-14.6)
[2020-03-20] MEDS: SEVELAMER CARBONATE 800 MG TABLET PO SCH ×3 (07:43→17:20)
[2020-03-20] MEDS: DIPHENHYDRAMINE 12.5MG/5ML UDC PO PRN (07:43)
[2020-03-20 08:00] VITALS: BP 182/86
[2020-03-20] MEDS ORDERED: DIPHENHYDRAMINE 50MG/ML VIAL IV SCH (09:00)
[2020-03-20] MEDS: CARVEDILOL 12.5MG TABLET PO SCH ×2 (10:45→20:04)
[2020-03-20] MEDS: DOCUSATE SODIUM 100MG CAPSULE PO SCH ×2 (10:45→17:20)
[2020-03-20] MEDS: LOSARTAN POTASSIUM 100 MG TABLET PO SCH (10:45)
[2020-03-20] MEDS: FOLIC ACID/VITAMIN B COMP W-C TABLET PO SCH (10:45)
[2020-03-20] MEDS: DOXERCALCIFEROL 2.5 MCG CAPSULE PO SCH (10:46)
[2020-03-20] MEDS: AMLODIPINE 10MG TABLET PO SCH (10:46)
[2020-03-20 12:00] VITALS: BP 148/70
[2020-03-20] MEDS ORDERED: DIPHENHYDRAMINE 12.5MG/5ML UDC PO PRN (12:45)
[2020-03-20] MEDS: CEFAZOLIN 1000MG PREMIX 50 ML IV SCH (13:38)
[2020-03-20 16:00] VITALS: BP 144/76
[2020-03-20 20:04] VITALS: BP 131/64
[2020-03-20] MEDS: TRAZODONE HCL 50MG TABLET PO SCH (20:04)
[2020-03-21] VITALS: BP 155/72
[2020-03-21] MEDS: HYDROCODONE/ACETAMINOPHEN 10/325MG TABLET PO PRN ×3 (00:13→14:03)
[2020-03-21 04:00] VITALS: BP 163/80
[2020-03-21 08:00] VITALS: BP 152/86
[2020-03-21] MEDS: LOSARTAN POTASSIUM 100 MG TABLET PO SCH (08:39)
[2020-03-21] MEDS: DOCUSATE SODIUM 100MG CAPSULE PO SCH ×2 (08:39→17:00)
[2020-03-21] MEDS: CARVEDILOL 12.5MG TABLET PO SCH ×2 (08:39→21:03)
[2020-03-21] MEDS: AMLODIPINE 10MG TABLET PO SCH (08:39)
[2020-03-21] MEDS: DOXERCALCIFEROL 2.5 MCG CAPSULE PO SCH (08:39)
[2020-03-21] MEDS: FOLIC ACID/VITAMIN B COMP W-C TABLET PO SCH (08:39)
[2020-03-21] MEDS: MORPHINE SULFATE 4 MG/ML CPJ (NOT FOR IM USE) IV PRN ×2 (08:45→17:10)
[2020-03-21] MEDS: SEVELAMER CARBONATE 800 MG TABLET PO SCH ×3 (08:47→17:00)
[2020-03-21] MEDS: DEXT 5%/0.9% NACL 1,000 ML IV SCH (08:47)
[2020-03-21 12:00] VITALS: BP 154/74
[2020-03-21] MEDS: CEFAZOLIN 1000MG PREMIX 50 ML IV SCH (13:57)
[2020-03-21 16:00] VITALS: BP 176/86
[2020-03-21] MEDS: CLONIDINE 0.1MG TABLET PO PRN (17:00)
[2020-03-21 20:06] VITALS: BP 139/64
[2020-03-21] MEDS: TRAZODONE HCL 50MG TABLET PO SCH (21:04)
[2020-03-22 00:04] VITALS: BP 153/67
[2020-03-22] MEDS: MORPHINE SULFATE 4 MG/ML CPJ (NOT FOR IM USE) IV PRN ×2 (03:33→08:43)
[2020-03-22] MEDS: DEXT 5%/0.9% NACL 1,000 ML IV SCH ×2 (03:34→17:09)
[2020-03-22 04:00] VITALS: BP 157/67
[2020-03-22 05:46] LABS: BASOPHILS % 0.2 % (0.0-2.0); EOSINOPHILS % 3.7 % (0.0-5.0); HEMATOCRIT. 22.7 % (42.0-52.0); HEMOGLOBIN. 7.7 g/dL (14.0-18.0); LYMPHOCYTES % 17.9 % (20.0-50.0); MEAN CORPUSCULAR HEMOGLOBIN 31.4 pg (28.0-32.0); MEAN CORPUSCULAR VOLUME 92.6 fL (80.0-94.0); NEUTROPHILS % 70.2 % (40.0-76.0); PLATELET 97 x1000/uL (130-400); RED BLOOD CELL COUNT 2.46 mill/uL (4.7-6.1); RED CELL DISTRIBUTION WIDTH 13.8 % (11.6-14.6)
[2020-03-22 08:00] VITALS: BP 155/61
[2020-03-22] MEDS: CARVEDILOL 12.5MG TABLET PO SCH ×2 (08:42→21:00)
[2020-03-22] MEDS: SEVELAMER CARBONATE 800 MG TABLET PO SCH ×3 (08:42→17:09)
[2020-03-22] MEDS: LOSARTAN POTASSIUM 100 MG TABLET PO SCH (08:42)
[2020-03-22] MEDS: DOCUSATE SODIUM 100MG CAPSULE PO SCH ×2 (08:42→17:10)
[2020-03-22] MEDS: AMLODIPINE 10MG TABLET PO SCH (08:42)
[2020-03-22] MEDS: FOLIC ACID/VITAMIN B COMP W-C TABLET PO SCH (08:42)
[2020-03-22] MEDS ORDERED: MORPHINE SULFATE 2 MG/ML CPJ (NOT FOR IM USE) IV NR (10:45)
[2020-03-22 12:00] VITALS: BP 146/65
[2020-03-22] MEDS: CEFAZOLIN 1000MG PREMIX 50 ML IV SCH (13:08)
[2020-03-22] MEDS: HYDROCODONE/ACETAMINOPHEN 10/325MG TABLET PO PRN (15:32)
[2020-03-22 16:00] VITALS: BP 173/71
[2020-03-22] MEDS: CLONIDINE 0.1MG TABLET PO PRN (17:10)
[2020-03-22 18:08] LABS: HEMATOCRIT 26.8 % (42.0-52.0); HEMOGLOBIN 9.2 g/dL (14.0-18.0)
[2020-03-22 20:00] VITALS: BP 168/83
[2020-03-22] MEDS: TRAZODONE HCL 50MG TABLET PO SCH (21:00)
[2020-03-22] MEDS: DIPHENHYDRAMINE 50MG/ML VIAL IV PRN (21:15)
[2020-03-23] VITALS: BP 154/79
[2020-03-23] MEDS: HYDROCODONE/ACETAMINOPHEN 10/325MG TABLET PO PRN ×3 (00:35→16:59)
[2020-03-23] MEDS: DEXT 5%/0.9% NACL 1,000 ML IV SCH (02:08)
[2020-03-23] MEDS: DIPHENHYDRAMINE 50MG/ML VIAL IV PRN (03:37)
[2020-03-23 08:00] VITALS: BP 159/70
[2020-03-23] MEDS: DOCUSATE SODIUM 100MG CAPSULE PO SCH ×2 (09:14→16:58)
[2020-03-23] MEDS: FOLIC ACID/VITAMIN B COMP W-C TABLET PO SCH (09:14)
[2020-03-23] MEDS: SEVELAMER CARBONATE 800 MG TABLET PO SCH ×3 (09:14→16:59)
[2020-03-23] MEDS: LOSARTAN POTASSIUM 100 MG TABLET PO SCH (09:14)
[2020-03-23] MEDS: AMLODIPINE 10MG TABLET PO SCH (09:15)
[2020-03-23] MEDS: CARVEDILOL 12.5MG TABLET PO SCH ×2 (09:15→21:00)
[2020-03-23 11:30] LABS: BASOPHILS % 0.7 % (0.0-2.0); EOSINOPHILS % 3.8 % (0.0-5.0); HEMATOCRIT. 25.8 % (42.0-52.0); HEMOGLOBIN. 8.9 g/dL (14.0-18.0); LYMPHOCYTES % 13.6 % (20.0-50.0); MEAN CORPUSCULAR HEMOGLOBIN 31.7 pg (28.0-32.0); MEAN CORPUSCULAR VOLUME 92.1 fL (80.0-94.0); MEAN PLATELET VOLUME 9.9 fl (7.4-10.4); MONOCYTES % 9.7 % (2.0-8.0); NEUTROPHILS % 72.2 % (40.0-76.0); PLATELET 127 x1000/uL (130-400); RED CELL DISTRIBUTION WIDTH 13.9 % (11.6-14.6)
[2020-03-23 12:00] VITALS: BP 145/60
[2020-03-23 16:00] VITALS: BP 142/59
[2020-03-23 20:00] VITALS: BP 118/56
[2020-03-23] MEDS: TRAZODONE HCL 50MG TABLET PO SCH (21:10)
[2020-03-24] VITALS: BP 109/57
[2020-03-24] MEDS: HYDROCODONE/ACETAMINOPHEN 10/325MG TABLET PO PRN ×2 (00:56→09:44)
[2020-03-24] MEDS: DEXT 5%/0.9% NACL 1,000 ML IV SCH ×2 (06:01→18:42)
[2020-03-24 08:00] VITALS: BP 116/64
[2020-03-24 08:29] LABS: BASOPHILS % 0.8 % (0.0-2.0); EOSINOPHILS % 3.7 % (0.0-5.0); HEMATOCRIT. 26.1 % (42.0-52.0); HEMOGLOBIN. 9.1 g/dL (14.0-18.0); LYMPHOCYTES % 17.4 % (20.0-50.0); MEAN CORPUSCULAR HEMOGLOBIN 31.8 pg (28.0-32.0); MEAN CORPUSCULAR VOLUME 91.4 fL (80.0-94.0); MEAN PLATELET VOLUME 8.7 fl (7.4-10.4); NEUTROPHILS % 67.1 % (40.0-76.0); PLATELET 138 x1000/uL (130-400); RED BLOOD CELL COUNT 2.86 mill/uL (4.7-6.1); RED CELL DISTRIBUTION WIDTH 13.8 % (11.6-14.6)
[2020-03-24] MEDS: FOLIC ACID/VITAMIN B COMP W-C TABLET PO SCH (09:37)
[2020-03-24] MEDS: DOXERCALCIFEROL 2.5 MCG CAPSULE PO SCH (09:37)
[2020-03-24] MEDS: SEVELAMER CARBONATE 800 MG TABLET PO SCH ×3 (09:37→17:50)
[2020-03-24] MEDS: LOSARTAN POTASSIUM 100 MG TABLET PO SCH (09:37)
[2020-03-24] MEDS: DOCUSATE SODIUM 100MG CAPSULE PO SCH ×2 (09:37→17:00)
[2020-03-24] MEDS: CARVEDILOL 12.5MG TABLET PO SCH (09:38)
[2020-03-24] MEDS: AMLODIPINE 10MG TABLET PO SCH (09:38)
[2020-03-24 12:00] VITALS: BP 102/50
[2020-03-24 16:00] VITALS: BP 152/70
[2020-03-24 16:36] VITALS: BP 152/70
== END 2020-03-24 18:36 | disposition home health service (06) | DRG 471 ==
LOC: 6EST 16:39 → MICUNO 03-17 12:06 → 6EST 03-19 09:22
PROVIDERS: ADMIT Internal Medicine; ATTEND Internal Medicine
PROC: 0RG2071 Fusion of 2 or more Cervical Vertebral Joints with Autologous Tissue Substitute, Posterior Approach, Posterior Column, Open Approach (ICD-10-PCS; principal; 2020-03-16)
PROC: 00NW0ZZ Release Cervical Spinal Cord, Open Approach (ICD-10-PCS; 2020-03-16)
PROC: 4A11X4Z Monitoring of Peripheral Nervous Electrical Activity, External Approach (ICD-10-PCS; 2020-03-16)
PROC: 5A1D70Z Performance of Urinary Filtration, Intermittent, Less than 6 Hours Per Day (ICD-10-PCS; 2020-03-17)
PROC: 5A1D70Z Performance of Urinary Filtration, Intermittent, Less than 6 Hours Per Day (ICD-10-PCS; 2020-03-19)
PROC: 5A1D70Z Performance of Urinary Filtration, Intermittent, Less than 6 Hours Per Day (ICD-10-PCS; 2020-03-21)
PROC: 5A1D70Z Performance of Urinary Filtration, Intermittent, Less than 6 Hours Per Day (ICD-10-PCS; 2020-03-24)
DX: M48.02 Spinal stenosis, cervical region (principal); G82.50 Quadriplegia, unspecified; I50.23 Acute on chronic systolic (congestive) heart failure; N18.6 End stage renal disease; I43 Cardiomyopathy in diseases classified elsewhere; G99.2 Myelopathy in diseases classified elsewhere; I13.2 Hypertensive heart and chronic kidney disease with heart failure and with stage 5 chronic kidney disease, or end stage renal disease; N25.81 Secondary hyperparathyroidism of renal origin; M54.12 Radiculopathy, cervical region; I27.20 Pulmonary hypertension, unspecified; D64.9 Anemia, unspecified; D72.819 Decreased white blood cell count, unspecified; E87.5 Hyperkalemia; E11.22 Type 2 diabetes mellitus with diabetic chronic kidney disease; E11.51 Type 2 diabetes mellitus with diabetic peripheral angiopathy without gangrene; E78.5 Hyperlipidemia, unspecified; F17.210 Nicotine dependence, cigarettes, uncomplicated; F32.9 Major depressive disorder, single episode, unspecified; J44.9 Chronic obstructive pulmonary disease, unspecified; M46.96 Unspecified inflammatory spondylopathy, lumbar region; M48.061 Spinal stenosis, lumbar region without neurogenic claudication; Z96.651 Presence of right artificial knee joint; E11.65 Type 2 diabetes mellitus with hyperglycemia; M12.9 Arthropathy, unspecified; Z20.828 Contact with and (suspected) exposure to other viral communicable diseases; M54.16 Radiculopathy, lumbar region; Z95.820 Peripheral vascular angioplasty status with implants and grafts; Z99.2 Dependence on renal dialysis; Z79.899 Other long term (current) drug therapy
CPT/HCPCS: 36415; 72040; 76000; 80048; 83735; 84100; 85014; 85018; 85025; 87426; 88304; 88311; 95863; 95925; 95926; 95928; 95929; 95940; 97116; 97162; 97166; 97530; 97535; C1713; J0610; J0690; J1100; J1170; J1200; J1815; J2250; J2270; J2405; J2704; J2710; J3010; J3490; J7042; J7050; J7060; L0172; Q0163

== ENCOUNTER 2020-03-26 14:40 | Inpatient (IN) | payer MEDICARE, MEDICAID ==
[~2020-03-26] VITALS: Ht 182.9 cm; Wt 93.9 kg
[~2020-03-26 14:40] MED LIST changes: -CLON0.1T PO; -METO-539 PO; -TRAM50TA3 PO
[2020-03-26] MEDS ORDERED: IPRATROPIUM BROMIDE (0.02%) 0.5MG/2.5ML NEB HHN STA (14:47)
[2020-03-26] MEDS ORDERED: ALBUTEROL (0.083%) 2.5MG/3ML NEB HHN STA (14:47)
[2020-03-26] MEDS ORDERED: METHYLPREDNISOLONE SOD SUCC 125 MG/2 ML VIAL IV STA (14:47)
[2020-03-26] MEDS ORDERED: FUROSEMIDE 40MG/4ML VIAL IV ONE (15:00)
[2020-03-26] MEDS ORDERED: MAGNESIUM 2 G PREMIX 50 ML IV ONE (15:00)
[2020-03-26 15:49] LABS: BASOPHILS % 1.5 % (0.0-2.0); EOSINOPHILS % 6.1 % (0.0-5.0); HEMATOCRIT. 29.8 % (42.0-52.0); HEMOGLOBIN. 10.1 g/dL (14.0-18.0); LYMPHOCYTES % 17.9 % (20.0-50.0); MEAN CORPUSCULAR HEMOGLOBIN 31.5 pg (28.0-32.0); MEAN CORPUSCULAR VOLUME 93.1 fL (80.0-94.0); MONOCYTES % 9.3 % (2.0-8.0); NEUTROPHILS % 65.2 % (40.0-76.0); PLATELET 236 x1000/uL (130-400); RED CELL DISTRIBUTION WIDTH 14.1 % (11.6-14.6)
[2020-03-26 15:56] LABS: CHLORIDE 105 mEq/L (98-107)
[2020-03-26 15:58] LABS: BG BASE EXCESS -7.4 mmol/L (-2.0-2.0); BG CARBOXYHEMOGLOBIN 0.4 % (0.5-1.5); BG DEOXYHEMOGLOBIN 0.9 % (0.0-5.0); BG FRACTION INSPIRED OXYGEN 50; BG HCO3 ACT 13.7 mmol/L (22.0-26.0); BG METHEMOGLOBIN 0.3 % (0.0-1.5); BG OXYGEN SATURATION 99.1 % (92.0-98.5); BG OXYHEMOGLOBIN 98.4 % (94.0-97.0); BG PCO2 17.5 mmHg (35.0-45.0); BG PO2 299.4 mmHg (75.0-100.0); BG SAMPLE SITE UAL; BG TOTAL HEMOGLOBIN 10.3 g/dL (12.0-18.0); BG VENT MODE MASK - BIPAP
[2020-03-26 16:01] LABS: ETHANOL BLOOD < 10 mg/dL
[2020-03-26 16:10] LABS: INR 0.9; PARTIAL THROMBOPLASTIN TIME 26.7 sec (23.4-31.0); PROTHROMBIN TIME 9.9 sec (9.6-11.0)
[2020-03-26] MEDS ORDERED: MORPHINE SULFATE 4 MG/ML CPJ (NOT FOR IM USE) IV ONE (21:15)
[2020-03-26 23:55] VITALS: BP 173/51
[2020-03-27] VITALS: BP 170/51
[2020-03-27] MEDS ORDERED: DEXTROSE 50% WATER 50ML SYRINGE IV PRN (01:30)
[2020-03-27] MEDS ORDERED: METOPROLOL TARTRATE 50MG TABLET PO SCH (01:45)
[2020-03-27 04:00] VITALS: BP 128/71
[2020-03-27] MEDS: CLONIDINE 0.1MG TABLET PO SCH ×3 (06:00→21:47)
[2020-03-27] MEDS: BLOOD SUGAR DIAGNOSTIC STRIP TEST SCH ×4 (06:40→20:28)
[2020-03-27] MEDS: INSULIN LISPRO 100 UNITS/ML SUBCUT SCH ×4 (07:10→20:28)
[2020-03-27 08:00] VITALS: BP 118/75
[2020-03-27] MEDS ORDERED: VALSARTAN 80 MG PO SCH (09:00)
[2020-03-27] MEDS ORDERED: LACTULOSE 20G/30ML UDC PO PRN (11:23)
[2020-03-27] MEDS: CALCIUM ACETATE 667MG CAPSULE PO SCH ×2 (11:30→17:13)
[2020-03-27] MEDS ORDERED: NON FORMULARY PATIENT HOME MED XX SCH (11:30)
[2020-03-27] MEDS: BENAZEPRIL 10MG TABLET PO SCH (11:30)
[2020-03-27] MEDS ORDERED: ALBUTEROL 6.7GM HFA INHALER ORI PRN (11:30)
[2020-03-27] MEDS: FOLIC ACID/VITAMIN B COMP W-C TABLET PO SCH (11:31)
[2020-03-27] MEDS: METOPROLOL TARTRATE 50MG TABLET PO SCH ×2 (11:31→20:14)
[2020-03-27 12:00] VITALS: BP 141/69
[2020-03-27] MEDS: FLUTICASONE FUROATE 100 1 INH/CAP ORI SCH (12:00)
[2020-03-27] MEDS: HYDROCODONE/ACETAMINOPHEN 10/325MG TABLET PO PRN ×2 (12:56→20:13)
[2020-03-27 16:00] VITALS: BP 125/90
[2020-03-27 20:00] VITALS: BP 128/68
[2020-03-28] VITALS: BP 122/47
[2020-03-28 04:00] VITALS: BP 120/64
[2020-03-28] MEDS: INSULIN LISPRO 100 UNITS/ML SUBCUT SCH ×4 (05:54→20:46)
[2020-03-28] MEDS: CLONIDINE 0.1MG TABLET PO SCH ×3 (05:54→22:00)
[2020-03-28] MEDS: BLOOD SUGAR DIAGNOSTIC STRIP TEST SCH ×4 (05:54→20:45)
[2020-03-28 06:44] LABS: EOSINOPHILS % 1.9 % (0.0-5.0); HEMATOCRIT. 24.1 % (42.0-52.0); HEMOGLOBIN. 8.3 g/dL (14.0-18.0); LYMPHOCYTES % 23.1 % (20.0-50.0); MEAN CORPUSCULAR HEMOGLOBIN 31.3 pg (28.0-32.0); MEAN CORPUSCULAR VOLUME 91.5 fL (80.0-94.0); MONOCYTES % 10.8 % (2.0-8.0); NEUTROPHILS % 63.2 % (40.0-76.0); PLATELET 182 x1000/uL (130-400); RED BLOOD CELL COUNT 2.64 mill/uL (4.7-6.1); RED CELL DISTRIBUTION WIDTH 14.2 % (11.6-14.6)
[2020-03-28 08:00] VITALS: BP 117/55
[2020-03-28] MEDS: METOPROLOL TARTRATE 50MG TABLET PO SCH ×2 (08:20→20:45)
[2020-03-28] MEDS: FOLIC ACID/VITAMIN B COMP W-C TABLET PO SCH (08:20)
[2020-03-28] MEDS: CALCIUM ACETATE 667MG CAPSULE PO SCH ×3 (08:21→16:40)
[2020-03-28] MEDS: BENAZEPRIL 10MG TABLET PO SCH (08:21)
[2020-03-28] MEDS: FLUTICASONE FUROATE 100 1 INH/CAP ORI SCH (08:21)
[2020-03-28] MEDS: HYDROCODONE/ACETAMINOPHEN 10/325MG TABLET PO PRN (08:22)
[2020-03-28 08:34] LABS: PHOSPHORUS 6.1 mg/dL (2.5-4.9)
[2020-03-28] MEDS: ENOXAPARIN 100MG/ML SYR SUBCUT SCH (10:04)
[2020-03-28] MEDS ORDERED: IOHEXOL-300 100 ML BOTTLE ONE (10:52)
[2020-03-28] MEDS ORDERED: DIPHENHYDRAMINE 25MG CAPSULE PO PRN (11:30)
[2020-03-28 12:00] VITALS: BP 132/58
[2020-03-28] MEDS: SEVELAMER CARBONATE 800 MG TABLET PO SCH ×2 (12:01→16:40)
[2020-03-28] MEDS: CALCITRIOL 0.25MCG CAPSULE PO SCH (12:02)
[2020-03-28 16:00] VITALS: BP 131/40
[2020-03-28 19:44] VITALS: BP 125/48
[2020-03-28] MEDS: TEMAZEPAM 15MG CAPSULE PO PRN (22:05)
[2020-03-29 00:35] VITALS: BP 139/59
[2020-03-29 04:00] VITALS: BP 154/64
[2020-03-29] MEDS: BLOOD SUGAR DIAGNOSTIC STRIP TEST SCH ×4 (05:32→20:50)
[2020-03-29] MEDS: CLONIDINE 0.1MG TABLET PO SCH ×3 (05:32→20:51)
[2020-03-29] MEDS: INSULIN LISPRO 100 UNITS/ML SUBCUT SCH ×4 (07:15→20:50)
[2020-03-29 08:00] VITALS: BP 150/70
[2020-03-29] MEDS: SEVELAMER CARBONATE 800 MG TABLET PO SCH ×3 (08:34→16:49)
[2020-03-29] MEDS: CALCIUM ACETATE 667MG CAPSULE PO SCH ×3 (08:34→16:49)
[2020-03-29] MEDS: BENAZEPRIL 10MG TABLET PO SCH (08:35)
[2020-03-29] MEDS: FOLIC ACID/VITAMIN B COMP W-C TABLET PO SCH (08:35)
[2020-03-29] MEDS: CALCITRIOL 0.25MCG CAPSULE PO SCH (08:35)
[2020-03-29] MEDS: METOPROLOL TARTRATE 50MG TABLET PO SCH ×2 (08:35→20:51)
[2020-03-29] MEDS: ENOXAPARIN 100MG/ML SYR SUBCUT SCH (08:36)
[2020-03-29] MEDS: FLUTICASONE FUROATE 100 1 INH/CAP ORI SCH (08:36)
[2020-03-29] MEDS ORDERED: FOLIC ACID/VITAMIN B COMP W-C TABLET PO SCH (09:00)
[2020-03-29 12:00] VITALS: BP 136/55
[2020-03-29 16:00] VITALS: BP 146/68
[2020-03-29] MEDS: HYDROCODONE/ACETAMINOPHEN 10/325MG TABLET PO PRN (16:57)
[2020-03-29 20:00] VITALS: BP 141/72
[2020-03-29] MEDS: EPOETIN ALFA-EPBX 10,000 UNIT/ML VIAL SUBCUT SCH (20:52)
[2020-03-30 04:00] VITALS: BP 157/70
[2020-03-30] MEDS: INSULIN LISPRO 100 UNITS/ML SUBCUT SCH ×4 (05:43→20:56)
[2020-03-30] MEDS: CLONIDINE 0.1MG TABLET PO SCH ×3 (05:43→20:56)
[2020-03-30] MEDS: BLOOD SUGAR DIAGNOSTIC STRIP TEST SCH ×4 (05:43→20:56)
[2020-03-30] MEDS: CALCIUM ACETATE 667MG CAPSULE PO SCH ×3 (08:16→17:37)
[2020-03-30] MEDS: SEVELAMER CARBONATE 800 MG TABLET PO SCH ×3 (08:16→17:37)
[2020-03-30] MEDS: FOLIC ACID/VITAMIN B COMP W-C TABLET PO SCH (08:16)
[2020-03-30] MEDS: CALCITRIOL 0.25MCG CAPSULE PO SCH (08:16)
[2020-03-30] MEDS: ENOXAPARIN 100MG/ML SYR SUBCUT SCH (08:17)
[2020-03-30] MEDS: METOPROLOL TARTRATE 50MG TABLET PO SCH ×2 (08:23→20:56)
[2020-03-30] MEDS: BENAZEPRIL 10MG TABLET PO SCH (08:23)
[2020-03-30] MEDS: FLUTICASONE FUROATE 100 1 INH/CAP ORI SCH (09:18)
[2020-03-30 09:21] LABS: HEMATOCRIT. 23.1 % (42.0-52.0); MEAN CORPUSCULAR HEMOGLOBIN 31.5 pg (28.0-32.0); MEAN CORPUSCULAR VOLUME 90.8 fL (80.0-94.0); MEAN PLATELET VOLUME 8.3 fl (7.4-10.4); PLATELET 158 x1000/uL (130-400); RED BLOOD CELL COUNT 2.55 mill/uL (4.7-6.1)
[2020-03-30] MEDS: IPRATROPIUM/ALBUTEROL 0.5-3(2.5)MG/3ML NEB HHN PRN ×2 (10:09→21:27)
[2020-03-30 10:58] LABS: PLATELET ESTIMATE NORMAL
[2020-03-30] MEDS: HYDROCODONE/ACETAMINOPHEN 10/325MG TABLET PO PRN (13:10)
[2020-03-30 16:00] VITALS: BP 143/55
[2020-03-30 20:00] VITALS: BP 120/72
[2020-03-30] MEDS: ZOLPIDEM TARTRATE 5MG TABLET PO PRN (22:55)
[2020-03-31] VITALS: BP 144/64
[2020-03-31 04:00] VITALS: BP 124/73
[2020-03-31] MEDS: CLONIDINE 0.1MG TABLET PO SCH ×3 (06:00→22:13)
[2020-03-31] MEDS: BLOOD SUGAR DIAGNOSTIC STRIP TEST SCH ×4 (06:15→20:19)
[2020-03-31] MEDS: INSULIN LISPRO 100 UNITS/ML SUBCUT SCH ×4 (06:15→21:00)
[2020-03-31 06:37] LABS: HEMATOCRIT. 21.3 % (42.0-52.0); HEMOGLOBIN. 7.2 g/dL (14.0-18.0); MEAN CORPUSCULAR HEMOGLOBIN 31.2 pg (28.0-32.0); MEAN CORPUSCULAR VOLUME 92.5 fL (80.0-94.0); PLATELET 147 x1000/uL (130-400); RED BLOOD CELL COUNT 2.31 mill/uL (4.7-6.1); RED CELL DISTRIBUTION WIDTH 13.9 % (11.6-14.6)
[2020-03-31] MEDS: CALCIUM ACETATE 667MG CAPSULE PO SCH ×3 (07:15→17:29)
[2020-03-31] MEDS: SEVELAMER CARBONATE 800 MG TABLET PO SCH ×3 (07:15→17:29)
[2020-03-31] MEDS: METOPROLOL TARTRATE 50MG TABLET PO SCH ×2 (09:00→20:19)
[2020-03-31] MEDS: FLUTICASONE FUROATE 100 1 INH/CAP ORI SCH (09:00)
[2020-03-31] MEDS ORDERED: ALTEPLASE 2MG/VIAL ITC NR (10:15)
[2020-03-31 10:37] LABS: PLATELET ESTIMATE NORMAL
[2020-03-31] MEDS ORDERED: MIDAZOLAM HCL 5 MG/5 ML VIAL ONE (12:30)
[2020-03-31] MEDS ORDERED: FENTANYL CITRATE/PF 50MCG/ML 5ML VIAL ONE (12:30)
[2020-03-31] MEDS ORDERED: IOHEXOL-300 100 ML BOTTLE ONE (12:31)
[2020-03-31] MEDS ORDERED: LIDOCAINE HCL 1% 20ML VIAL (Pyxis) INJ ONE (12:31)
[2020-03-31] MEDS ORDERED: IODIXANOL 320MG/ML 100 ML BOTTLE IV ONE (12:31)
[2020-03-31] MEDS: CALCITRIOL 0.25MCG CAPSULE PO SCH (15:31)
[2020-03-31] MEDS: FOLIC ACID/VITAMIN B COMP W-C TABLET PO SCH (15:31)
[2020-03-31] MEDS: BENAZEPRIL 10MG TABLET PO SCH (15:32)
[2020-03-31 16:00] VITALS: BP 198/86
[2020-03-31 18:00] VITALS: BP 169/103
[2020-03-31] MEDS: ENOXAPARIN 100MG/ML SYR SUBCUT SCH (19:12)
[2020-03-31 20:02] VITALS: BP 170/87
[2020-03-31 22:00] VITALS: BP 139/95
[2020-04-01] VITALS (14 sets, daily range): BP systolic 92–182; BP diastolic 39–88
[2020-04-01] MEDS: ACETAMINOPHEN 325MG TABLET PO PRN (00:39)
[2020-04-01] MEDS: IPRATROPIUM/ALBUTEROL 0.5-3(2.5)MG/3ML NEB HHN PRN (01:13)
[2020-04-01] MEDS: TEMAZEPAM 15MG CAPSULE PO PRN (01:47)
[2020-04-01] MEDS: CLONIDINE 0.1MG TABLET PO SCH ×3 (06:00→21:46)
[2020-04-01] MEDS: BLOOD SUGAR DIAGNOSTIC STRIP TEST SCH ×4 (06:50→20:31)
[2020-04-01] MEDS: INSULIN LISPRO 100 UNITS/ML SUBCUT SCH ×4 (07:20→20:40)
[2020-04-01] MEDS: CALCITRIOL 0.25MCG CAPSULE PO SCH (08:21)
[2020-04-01] MEDS: FOLIC ACID/VITAMIN B COMP W-C TABLET PO SCH (08:23)
[2020-04-01] MEDS: CALCIUM ACETATE 667MG CAPSULE PO SCH ×3 (08:23→17:15)
[2020-04-01] MEDS: SEVELAMER CARBONATE 800 MG TABLET PO SCH ×3 (08:24→17:15)
[2020-04-01] MEDS: HYDROCODONE/ACETAMINOPHEN 10/325MG TABLET PO PRN (08:25)
[2020-04-01] MEDS: FLUTICASONE FUROATE 100 1 INH/CAP ORI SCH ×2 (08:26→08:37)
[2020-04-01] MEDS: ENOXAPARIN 100MG/ML SYR SUBCUT SCH (08:26)
[2020-04-01 08:44] LABS: HEMATOCRIT. 28.8 % (42.0-52.0); HEMOGLOBIN. 9.6 g/dL (14.0-18.0); MEAN CORPUSCULAR HEMOGLOBIN 30.7 pg (28.0-32.0); MEAN CORPUSCULAR VOLUME 92.1 fL (80.0-94.0); MEAN PLATELET VOLUME 9.7 fl (7.4-10.4); PLATELET 169 x1000/uL (130-400); RED BLOOD CELL COUNT 3.13 mill/uL (4.7-6.1); RED CELL DISTRIBUTION WIDTH 14.3 % (11.6-14.6)
[2020-04-01] MEDS: METOPROLOL TARTRATE 50MG TABLET PO SCH ×2 (09:00→20:31)
[2020-04-01] MEDS: BENAZEPRIL 10MG TABLET PO SCH (09:00)
[2020-04-01 13:01] LABS: PLATELET ESTIMATE NORMAL
[2020-04-01] MEDS ORDERED: CEFTRIAXONE 1 G PREMIX 50 ML IV SCH (14:15)
[2020-04-01] MEDS: AZITHROMYCIN 250 MG TABLET PO SCH (14:29)
[2020-04-01] MEDS: HYDROCODONE/ACETAMINOPHEN 5/325MG TABLET PO PRN ×2 (14:52→21:03)
[2020-04-01] MEDS: CEFTRIAXONE 1,000 MG in DEXTROSE 5% WATER 50 ML IV SCH (16:37)
[2020-04-01] MEDS: EPOETIN ALFA-EPBX 10,000 UNIT/ML VIAL SUBCUT SCH (20:31)
[2020-04-02] VITALS (12 sets, daily range): BP systolic 103–137; BP diastolic 55–80
[2020-04-02] MEDS: CLONIDINE 0.1MG TABLET PO SCH ×3 (05:27→22:00)
[2020-04-02] MEDS: HYDROCODONE/ACETAMINOPHEN 5/325MG TABLET PO PRN ×2 (05:28→09:18)
[2020-04-02] MEDS: BLOOD SUGAR DIAGNOSTIC STRIP TEST SCH ×4 (06:13→21:00)
[2020-04-02] MEDS: INSULIN LISPRO 100 UNITS/ML SUBCUT SCH ×4 (07:20→21:00)
[2020-04-02] MEDS: ENOXAPARIN 100MG/ML SYR SUBCUT SCH (07:49)
[2020-04-02] MEDS: FOLIC ACID/VITAMIN B COMP W-C TABLET PO SCH (07:49)
[2020-04-02] MEDS: CALCIUM ACETATE 667MG CAPSULE PO SCH ×5 (07:49→17:20)
[2020-04-02] MEDS: SEVELAMER CARBONATE 800 MG TABLET PO SCH ×5 (07:49→17:20)
[2020-04-02] MEDS: FLUTICASONE FUROATE 100 1 INH/CAP ORI SCH (07:50)
[2020-04-02] MEDS: AZITHROMYCIN 250 MG TABLET PO SCH (07:50)
[2020-04-02] MEDS: CALCITRIOL 0.25MCG CAPSULE PO SCH (07:50)
[2020-04-02 08:50] LABS: HEMATOCRIT. 22.9 % (42.0-52.0); HEMOGLOBIN. 7.8 g/dL (14.0-18.0); MEAN CORPUSCULAR HEMOGLOBIN 31.2 pg (28.0-32.0); MEAN CORPUSCULAR VOLUME 91.6 fL (80.0-94.0); MEAN PLATELET VOLUME 9.4 fl (7.4-10.4); PLATELET 174 x1000/uL (130-400); RED CELL DISTRIBUTION WIDTH 14.1 % (11.6-14.6)
[2020-04-02] MEDS: METOPROLOL TARTRATE 50MG TABLET PO SCH ×2 (09:00→21:00)
[2020-04-02] MEDS: BENAZEPRIL 10MG TABLET PO SCH (09:00)
[2020-04-02 10:09] LABS: BG BASE EXCESS -0.6 mmol/L (-2.0-2.0); BG CARBOXYHEMOGLOBIN 0.9 % (0.5-1.5); BG DEOXYHEMOGLOBIN 13.3 % (0.0-5.0); BG FRACTION INSPIRED OXYGEN 21; BG HCO3 ACT 24.2 mmol/L (22.0-26.0); BG METHEMOGLOBIN 0.3 % (0.0-1.5); BG OXYGEN SATURATION 86.5 % (92.0-98.5); BG OXYHEMOGLOBIN 85.5 % (94.0-97.0); BG PCO2 40.2 mmHg (35.0-45.0); BG PH 7.397 (7.350-7.450); BG PO2 53.8 mmHg (75.0-100.0); BG SAMPLE SITE RIGHT RADIAL; BG TOTAL HEMOGLOBIN 8.5 g/dL (12.0-18.0); BG VENT MODE ROOM AIR
[2020-04-02 10:13] LABS: PLATELET ESTIMATE NORMAL
[2020-04-02] MEDS ORDERED: HYDROCODONE/ACETAMINOPHEN 10/325MG TABLET PO PRN (11:30)
[2020-04-02] MEDS ORDERED: SODIUM BICARBONATE 4% (2.4MEQ) 5ML VIAL IV ONE (13:33)
[2020-04-02] MEDS ORDERED: LIDOCAINE HCL 1% 20ML VIAL (Pyxis) INJ ONE (13:33)
[2020-04-02] MEDS: CEFTRIAXONE 1,000 MG in DEXTROSE 5% WATER 50 ML IV SCH (17:03)
[2020-04-03] VITALS (12 sets, daily range): BP systolic 101–137; BP diastolic 53–72
[2020-04-03] MEDS: ACETAMINOPHEN 325MG TABLET PO PRN (00:35)
[2020-04-03] MEDS: ZOLPIDEM TARTRATE 5MG TABLET PO PRN (02:23)
[2020-04-03] MEDS: BLOOD SUGAR DIAGNOSTIC STRIP TEST SCH ×3 (06:22→17:33)
[2020-04-03 06:30] LABS: BASOPHILS % 0.4 % (0.0-2.0); EOSINOPHILS % 1.3 % (0.0-5.0); HEMATOCRIT. 25.6 % (42.0-52.0); HEMOGLOBIN. 8.7 g/dL (14.0-18.0); LYMPHOCYTES % 8.1 % (20.0-50.0); MEAN CORPUSCULAR HEMOGLOBIN 31.1 pg (28.0-32.0); MEAN CORPUSCULAR VOLUME 91.7 fL (80.0-94.0); MEAN PLATELET VOLUME 8.9 fl (7.4-10.4); MONOCYTES % 10.8 % (2.0-8.0); NEUTROPHILS % 79.4 % (40.0-76.0); PLATELET 158 x1000/uL (130-400); RED BLOOD CELL COUNT 2.79 mill/uL (4.7-6.1)
[2020-04-03] MEDS: CLONIDINE 0.1MG TABLET PO SCH ×2 (06:47→13:00)
[2020-04-03] MEDS: INSULIN LISPRO 100 UNITS/ML SUBCUT SCH ×3 (06:53→17:20)
[2020-04-03 07:03] LABS: FOLIC ACID (FOLATE) SERUM 15.2 ng/mL (>5.38)
[2020-04-03] MEDS: SEVELAMER CARBONATE 800 MG TABLET PO SCH ×3 (07:20→17:20)
[2020-04-03] MEDS: CALCIUM ACETATE 667MG CAPSULE PO SCH ×3 (07:20→17:20)
[2020-04-03] MEDS: FOLIC ACID/VITAMIN B COMP W-C TABLET PO SCH (09:00)
[2020-04-03] MEDS: BENAZEPRIL 10MG TABLET PO SCH (09:00)
[2020-04-03] MEDS: ENOXAPARIN 100MG/ML SYR SUBCUT SCH (09:00)
[2020-04-03] MEDS: CALCITRIOL 0.25MCG CAPSULE PO SCH (09:00)
[2020-04-03] MEDS: METOPROLOL TARTRATE 50MG TABLET PO SCH (09:00)
[2020-04-03] MEDS ORDERED: DOCUSATE SODIUM 250MG CAPSULE PO SCH (11:30)
[2020-04-03] MEDS: FERROUS SULFATE 325MG TABLET PO SCH ×2 (12:57→17:20)
[2020-04-03] MEDS: AZITHROMYCIN 250 MG TABLET PO SCH (12:57)
[2020-04-03] MEDS: FLUTICASONE FUROATE 100 1 INH/CAP ORI SCH (12:58)
[2020-04-03] MEDS: CEFTRIAXONE 1,000 MG in DEXTROSE 5% WATER 50 ML IV SCH (16:00)
== END 2020-04-03 21:30 | DRG 270 ==
LOC: ER 14:40 → EDBEDREQTM 16:52 → EDBEDREQ 16:52 → EDBEDREQSVC 18:35 → ENRESERV 22:35 → 7EST 23:26 → 5WST 03-27 15:50 → 3WST 03-31 14:21
PROVIDERS: ADMIT Internal Medicine; ATTEND Internal Medicine
PROC: 5A09357 Assistance with Respiratory Ventilation, Less than 24 Consecutive Hours, Continuous Positive Airway Pressure (ICD-10-PCS; 2020-03-26)
PROC: 5A1D70Z Performance of Urinary Filtration, Intermittent, Less than 6 Hours Per Day (ICD-10-PCS; 2020-03-26)
PROC: B51V1ZZ Fluoroscopy of Other Veins using Low Osmolar Contrast (ICD-10-PCS; 2020-03-27)
PROC: 3E03317 Introduction of Other Thrombolytic into Peripheral Vein, Percutaneous Approach (ICD-10-PCS; 2020-03-27)
PROC: 5A1D70Z Performance of Urinary Filtration, Intermittent, Less than 6 Hours Per Day (ICD-10-PCS; 2020-03-27)
PROC: 5A1D70Z Performance of Urinary Filtration, Intermittent, Less than 6 Hours Per Day (ICD-10-PCS; 2020-03-29)
PROC: 027V3ZZ Dilation of Superior Vena Cava, Percutaneous Approach (ICD-10-PCS; principal; 2020-03-31)
PROC: 05753ZZ Dilation of Right Subclavian Vein, Percutaneous Approach (ICD-10-PCS; 2020-03-31)
PROC: 05H533Z Insertion of Infusion Device into Right Subclavian Vein, Percutaneous Approach (ICD-10-PCS; 2020-03-31)
PROC: 03H333Z Insertion of Infusion Device into Right Subclavian Artery, Percutaneous Approach (ICD-10-PCS; 2020-03-31)
PROC: 05HY33Z Insertion of Infusion Device into Upper Vein, Percutaneous Approach (ICD-10-PCS; 2020-03-31)
PROC: 02HV33Z Insertion of Infusion Device into Superior Vena Cava, Percutaneous Approach (ICD-10-PCS; 2020-03-31)
PROC: 5A1D70Z Performance of Urinary Filtration, Intermittent, Less than 6 Hours Per Day (ICD-10-PCS; 2020-03-31)
PROC: 05C Upper Veins, Extirpation (ICD-10-PCS; 2020-03-31)
PROC: 05C Upper Veins, Extirpation (ICD-10-PCS; 2020-03-31)
PROC: 05C70ZZ Extirpation of Matter from Right Axillary Vein, Open Approach (ICD-10-PCS; 2020-03-31)
PROC: 05C90ZZ Extirpation of Matter from Right Brachial Vein, Open Approach (ICD-10-PCS; 2020-03-31)
PROC: 05733ZZ Dilation of Right Innominate Vein, Percutaneous Approach (ICD-10-PCS; 2020-04-01)
PROC: 05773ZZ Dilation of Right Axillary Vein, Percutaneous Approach (ICD-10-PCS; 2020-04-01)
PROC: 30233N1 Transfusion of Nonautologous Red Blood Cells into Peripheral Vein, Percutaneous Approach (ICD-10-PCS; 2020-04-01)
PROC: 5A1D70Z Performance of Urinary Filtration, Intermittent, Less than 6 Hours Per Day (ICD-10-PCS; 2020-04-01)
PROC: B5181ZA Fluoroscopy of Superior Vena Cava using Low Osmolar Contrast, Guidance (ICD-10-PCS; 2020-04-02)
PROC: B548ZZA Ultrasonography of Superior Vena Cava, Guidance (ICD-10-PCS; 2020-04-02)
PROC: 5A1D70Z Performance of Urinary Filtration, Intermittent, Less than 6 Hours Per Day (ICD-10-PCS; 2020-04-02)
DX: I82.210 Acute embolism and thrombosis of superior vena cava (principal); I26.99 Other pulmonary embolism without acute cor pulmonale; J96.00 Acute respiratory failure, unspecified whether with hypoxia or hypercapnia; I50.43 Acute on chronic combined systolic (congestive) and diastolic (congestive) heart failure; N18.6 End stage renal disease; J18.9 Pneumonia, unspecified organism; I87.1 Compression of vein; I13.2 Hypertensive heart and chronic kidney disease with heart failure and with stage 5 chronic kidney disease, or end stage renal disease; E44.0 Moderate protein-calorie malnutrition; E87.4 Mixed disorder of acid-base balance; G95.9 Disease of spinal cord, unspecified; N25.81 Secondary hyperparathyroidism of renal origin; I43 Cardiomyopathy in diseases classified elsewhere; E87.1 Hypo-osmolality and hyponatremia; I82.621 Acute embolism and thrombosis of deep veins of right upper extremity; J43.2 Centrilobular emphysema; Z99.2 Dependence on renal dialysis; D64.9 Anemia, unspecified; E11.22 Type 2 diabetes mellitus with diabetic chronic kidney disease; E11.51 Type 2 diabetes mellitus with diabetic peripheral angiopathy without gangrene; E78.5 Hyperlipidemia, unspecified; F17.210 Nicotine dependence, cigarettes, uncomplicated; F32.9 Major depressive disorder, single episode, unspecified; I27.20 Pulmonary hypertension, unspecified; M12.9 Arthropathy, unspecified; M48.061 Spinal stenosis, lumbar region without neurogenic claudication; M54.16 Radiculopathy, lumbar region; Z96.651 Presence of right artificial knee joint; Z20.828 Contact with and (suspected) exposure to other viral communicable diseases; M48.02 Spinal stenosis, cervical region; D72.819 Decreased white blood cell count, unspecified; J43.9 Emphysema, unspecified; M47.817 Spondylosis without myelopathy or radiculopathy, lumbosacral region; Z91.15 Patient's noncompliance with renal dialysis; Z86.711 Personal history of pulmonary embolism; Z68.28 Body mass index [BMI] 28.0-28.9, adult; Z79.899 Other long term (current) drug therapy
CPT/HCPCS: 36415; 36573; 36600; 37184; 37248; 71045; 71260; 75820; 75825; 76937; 80048; 80053; 80061; 80320; 82375; 82607; 82728; 82746; 82805; 82962; 83036; 83540; 83550; 83605; 83735; 83880; 84100; 84484; 85025; 85044; 86850; 86900; 86920; 87635; 93005; 93970; 93971; 94640; 94660; 97162; 97164; 97530; 99291; C1725; C1757; C1760; C1769; C1893; J0696; J0885; J1644; J1650; J1815; J1940; J2250; J2270; J2930; J2997; J3010; J3475; J3490; J7040; J7060; P9016; Q0163; Q9967; G0480

== ENCOUNTER → 2020-04-24 | Day surgery (SDC) | payer MEDICARE, MEDICAID ==
[~2020-04-24] VITALS: Ht 182.9 cm; Wt 83.5 kg
[2020-04-24] VITALS (13 sets, daily range): BP systolic 110–157; BP diastolic 17–74
[~2020-04-24] MED LIST changes: +ALTEPLASE 2MG/VIAL ITC ONE; +CEFAZOLIN 1000MG PREMIX 50 ML IV ONE; -DICL75TA5 PO; +FENTANYL CITRATE/PF 50MCG/ML 2ML VIAL IV ONE; +FENTANYL CITRATE/PF 50MCG/ML 2ML VIAL ONE; +HEPARIN 1000 UNITS/ML 10ML ONE; +IOHEXOL-300 100 ML BOTTLE ONE; +LIDOCAINE HCL 1% 20ML VIAL (Pyxis) INJ ONE; +SODIUM BICARBONATE 4% (2.4MEQ) 5ML VIAL IV ONE
== END | disposition home or self-care (01) ==
LOC: RADANGIO 07:39
PROVIDERS: ATTEND Internal Medicine Critical Care Medicine
DX: N18.6 End stage renal disease (principal); Z79.899 Other long term (current) drug therapy; Z87.891 Personal history of nicotine dependence; Z98.890 Other specified postprocedural states; Z82.49 Family history of ischemic heart disease and other diseases of the circulatory system; Z83.3 Family history of diabetes mellitus
CPT/HCPCS: 36415; 36905; 76937; 82947; 84132; C1725; C1766; J0690; J1644; J3010; J3490; Q9967; 99152; 99153; J2997; G0500

== ENCOUNTER 2020-05-02 07:38 | Inpatient (IN) | payer MEDICARE, MEDICAID ==
[~2020-05-02] VITALS: Ht 182.9 cm; Wt 83.9 kg
[~2020-05-02 07:38] MED LIST changes: -ALTEPLASE 2MG/VIAL ITC ONE; -CEFAZOLIN 1000MG PREMIX 50 ML IV ONE; -FENTANYL CITRATE/PF 50MCG/ML 2ML VIAL IV ONE; -FENTANYL CITRATE/PF 50MCG/ML 2ML VIAL ONE; -GABA-531 PO; +GABA-532 PO; -HEPARIN 1000 UNITS/ML 10ML ONE; -IOHEXOL-300 100 ML BOTTLE ONE; -LIDOCAINE HCL 1% 20ML VIAL (Pyxis) INJ ONE; -SODIUM BICARBONATE 4% (2.4MEQ) 5ML VIAL IV ONE
[2020-05-02] MEDS ORDERED: MORPHINE SULFATE 4 MG/ML CPJ (NOT FOR IM USE) IV STA (08:04)
[2020-05-02 09:32] LABS: BASOPHILS % 0.8 % (0.0-2.0); EOSINOPHILS % 3.3 % (0.0-5.0); HEMATOCRIT. 27.1 % (42.0-52.0); LYMPHOCYTES % 19.2 % (20.0-50.0); MEAN CORPUSCULAR HEMOGLOBIN 31.8 pg (28.0-32.0); MEAN CORPUSCULAR VOLUME 95.4 fL (80.0-94.0); MEAN PLATELET VOLUME 8.2 fl (7.4-10.4); MONOCYTES % 7.4 % (2.0-8.0); NEUTROPHILS % 69.3 % (40.0-76.0); PLATELET 171 x1000/uL (130-400); RED BLOOD CELL COUNT 2.84 mill/uL (4.7-6.1); RED CELL DISTRIBUTION WIDTH 16.6 % (11.6-14.6)
[2020-05-02 09:37] LABS: CHLORIDE 108 mEq/L (98-107)
[2020-05-02 09:58] LABS: BG BASE EXCESS -6.1 mmol/L (-2.0-2.0); BG CARBOXYHEMOGLOBIN 2.4 % (0.5-1.5); BG DEOXYHEMOGLOBIN 4.9 % (0.0-5.0); BG HCO3 ACT 19.1 mmol/L (22.0-26.0); BG METHEMOGLOBIN 0.2 % (0.0-1.5); BG OXYHEMOGLOBIN 92.5 % (94.0-97.0); BG PCO2 35.9 mmHg (35.0-45.0); BG PH 7.343 (7.350-7.450); BG PO2 78.6 mmHg (75.0-100.0); BG SAMPLE SITE RIGHT RADIAL; BG TOTAL HEMOGLOBIN 8.4 g/dL (12.0-18.0); BG VENT MODE NASAL CANNULA
[2020-05-02] MEDS ORDERED: SODIUM POLYSTYRENE SULFONATE 15 G/60 ML BOT PO ONE (10:15)
[2020-05-02] MEDS ORDERED: ALBUTEROL (0.083%) 2.5MG/3ML NEB HHN ONE (10:15)
[2020-05-02] MEDS ORDERED: INSULIN REGULAR (HUMULIN R) 300UNITS/3ML VIAL IV ONE (10:15)
[2020-05-02] MEDS ORDERED: SODIUM BICARBONATE 8.4% 1 MEQ/ML 50ML SYR IV ONE (10:15)
[2020-05-02] MEDS ORDERED: ALBUTEROL (0.5%) 2.5MG/0.5ML NEB HHN ONE (12:13)
[2020-05-02] MEDS ORDERED: DEXTROSE 50% WATER 50ML SYRINGE IV PRN (12:15)
[2020-05-02] MEDS ORDERED: ACETAMINOPHEN 325MG TABLET PO PRN (12:15)
[2020-05-02] MEDS ORDERED: ONDANSETRON HCL 4MG/2ML INJ IV PRN (12:15)
[2020-05-02] MEDS ORDERED: CEFTRIAXONE 1 G PREMIX 50 ML IV SCH (13:00)
[2020-05-02] MEDS ORDERED: AZITHROMYCIN 500 MG TABLET PO NR (13:00)
[2020-05-02] MEDS ORDERED: DEXTROSE 50% WATER 50ML SYRINGE IV NR (13:00)
[2020-05-02] MEDS: HYDROCODONE/ACETAMINOPHEN 5/325MG TABLET PO PRN ×2 (13:36→19:24)
[2020-05-02] MEDS ORDERED: IPRATROPIUM/ALBUTEROL 0.5-3(2.5)MG/3ML NEB HHN PRN (19:00)
[2020-05-02] MEDS ORDERED: ENOXAPARIN 120MG/0.8ML SYR SUBCUT SCH (20:00)
[2020-05-02] MEDS: CARVEDILOL 6.25 MG TABLET PO SCH (23:38)
[2020-05-03] MEDS: AZITHROMYCIN 250 MG TABLET PO SCH (08:12)
[2020-05-03] MEDS: HYDROCODONE/ACETAMINOPHEN 5/325MG TABLET PO PRN ×2 (08:13→14:34)
[2020-05-03] MEDS: CARVEDILOL 6.25 MG TABLET PO SCH ×2 (08:51→22:17)
[2020-05-03] MEDS ORDERED: LOSARTAN POTASSIUM 25 MG TABLET PO SCH (09:00)
[2020-05-03 11:06] VITALS: BP 163/95
[2020-05-03 11:51] VITALS: BP 159/94
[2020-05-03] MEDS: CEFTRIAXONE 1,000 MG in DEXTROSE 5% WATER 50 ML IV SCH (14:33)
[2020-05-03] MEDS: FOLIC ACID/VITAMIN B COMP W-C TABLET PO SCH (14:38)
[2020-05-03 16:00] VITALS: BP 141/79
[2020-05-03 16:44] LABS: BASOPHILS % 1.5 % (0.0-2.0); EOSINOPHILS % 5.7 % (0.0-5.0); HEMATOCRIT. 22.5 % (42.0-52.0); HEMOGLOBIN. 7.7 g/dL (14.0-18.0); LYMPHOCYTES % 19.5 % (20.0-50.0); MEAN CORPUSCULAR VOLUME 94.2 fL (80.0-94.0); MONOCYTES % 6.8 % (2.0-8.0); NEUTROPHILS % 66.5 % (40.0-76.0); PLATELET 150 x1000/uL (130-400); RED BLOOD CELL COUNT 2.39 mill/uL (4.7-6.1); RED CELL DISTRIBUTION WIDTH 16.2 % (11.6-14.6)
[2020-05-03 16:53] LABS: PROTHROMBIN TIME 10.9 sec (9.6-11.0)
[2020-05-03 17:28] LABS: HEPATITIS B SURFACE ANTIGEN NEGATIVE
[2020-05-03] MEDS: CALCIUM ACETATE 667MG CAPSULE PO SCH (18:14)
[2020-05-03] MEDS: ENOXAPARIN 80MG/0.8ML SYR SUBCUT SCH (22:18)
[2020-05-04] VITALS: BP 142/71
[2020-05-04 04:00] VITALS: BP 133/77
[2020-05-04 08:52] VITALS: BP 169/81
[2020-05-04] MEDS: AZITHROMYCIN 250 MG TABLET PO SCH (08:52)
[2020-05-04] MEDS: CALCIUM ACETATE 667MG CAPSULE PO SCH ×3 (08:52→17:27)
[2020-05-04] MEDS: LOSARTAN POTASSIUM 100 MG TABLET PO SCH (08:52)
[2020-05-04] MEDS: FOLIC ACID/VITAMIN B COMP W-C TABLET PO SCH (08:53)
[2020-05-04] MEDS: CARVEDILOL 6.25 MG TABLET PO SCH ×2 (08:53→21:00)
[2020-05-04] MEDS: HYDROCODONE/ACETAMINOPHEN 5/325MG TABLET PO PRN (10:06)
[2020-05-04] MEDS ORDERED: HYDROCODONE/ACETAMINOPHEN 10/325MG TABLET PO PRN (11:15)
[2020-05-04 12:25] VITALS: BP 155/78
[2020-05-04] MEDS: CEFTRIAXONE 1,000 MG in DEXTROSE 5% WATER 50 ML IV SCH (12:59)
[2020-05-04 16:33] VITALS: BP_SYST 100; BP_SYST 147; BP_DIAS 55; BP_DIAS 76
[2020-05-04 20:00] VITALS: BP 159/85
[2020-05-04] MEDS: ENOXAPARIN 80MG/0.8ML SYR SUBCUT SCH (21:00)
[2020-05-05] VITALS (7 sets, daily range): BP systolic 134–171; BP diastolic 76–92
[2020-05-05] MEDS: CALCIUM ACETATE 667MG CAPSULE PO SCH ×3 (06:36→18:17)
[2020-05-05] MEDS: CARVEDILOL 6.25 MG TABLET PO SCH ×2 (09:00→21:36)
[2020-05-05] MEDS: LOSARTAN POTASSIUM 100 MG TABLET PO SCH (09:00)
[2020-05-05] MEDS: AZITHROMYCIN 250 MG TABLET PO SCH (09:25)
[2020-05-05] MEDS: FOLIC ACID/VITAMIN B COMP W-C TABLET PO SCH (09:25)
[2020-05-05] MEDS: CEFTRIAXONE 1,000 MG in DEXTROSE 5% WATER 50 ML IV SCH (14:17)
[2020-05-05 16:18] LABS: BASOPHILS % 1.1 % (0.0-2.0); EOSINOPHILS % 5.1 % (0.0-5.0); HEMATOCRIT. 23.5 % (42.0-52.0); HEMOGLOBIN. 7.7 g/dL (14.0-18.0); LYMPHOCYTES % 27.4 % (20.0-50.0); MEAN CORPUSCULAR HEMOGLOBIN 31.5 pg (28.0-32.0); MEAN CORPUSCULAR VOLUME 96.1 fL (80.0-94.0); MEAN PLATELET VOLUME 8.2 fl (7.4-10.4); MONOCYTES % 11.5 % (2.0-8.0); NEUTROPHILS % 54.9 % (40.0-76.0); PLATELET 145 x1000/uL (130-400); RED BLOOD CELL COUNT 2.44 mill/uL (4.7-6.1); RED CELL DISTRIBUTION WIDTH 16.6 % (11.6-14.6)
[2020-05-05] MEDS ORDERED: SODIUM POLYSTYRENE SULFONATE 15 G/60 ML BOT PO NR (20:00)
[2020-05-05] MEDS ORDERED: EPOETIN ALFA-EPBX 10,000 UNIT/ML VIAL SUBCUT NR (21:00)
[2020-05-05] MEDS: ENOXAPARIN 80MG/0.8ML SYR SUBCUT SCH (21:36)
[2020-05-06] VITALS (7 sets, daily range): BP systolic 149–171; BP diastolic 73–98
[2020-05-06] MEDS: AZITHROMYCIN 250 MG TABLET PO SCH (08:59)
[2020-05-06] MEDS: FOLIC ACID/VITAMIN B COMP W-C TABLET PO SCH (08:59)
[2020-05-06] MEDS: CALCIUM ACETATE 667MG CAPSULE PO SCH ×3 (08:59→17:50)
[2020-05-06] MEDS: CARVEDILOL 6.25 MG TABLET PO SCH (09:00)
[2020-05-06] MEDS: LOSARTAN POTASSIUM 100 MG TABLET PO SCH (09:00)
[2020-05-06 12:05] LABS: BASOPHILS % 0.8 % (0.0-2.0); HEMATOCRIT. 24.5 % (42.0-52.0); HEMOGLOBIN. 8.4 g/dL (14.0-18.0); LYMPHOCYTES % 22.1 % (20.0-50.0); MEAN CORPUSCULAR HEMOGLOBIN 32.5 pg (28.0-32.0); MEAN CORPUSCULAR VOLUME 95.2 fL (80.0-94.0); MEAN PLATELET VOLUME 8.2 fl (7.4-10.4); MONOCYTES % 10.3 % (2.0-8.0); NEUTROPHILS % 61.8 % (40.0-76.0); PLATELET 149 x1000/uL (130-400); RED BLOOD CELL COUNT 2.57 mill/uL (4.7-6.1); RED CELL DISTRIBUTION WIDTH 16.3 % (11.6-14.6)
[2020-05-06] MEDS: CEFTRIAXONE 1,000 MG in DEXTROSE 5% WATER 50 ML IV SCH (13:34)
[2020-05-06] MEDS ORDERED: CLON0.1T14 PO (14:01)
[2020-05-06] MEDS ORDERED: NEPVIT PO (14:01)
[2020-05-06] MEDS ORDERED: GABA-532 MT (14:01)
[2020-05-06] MEDS ORDERED: APIX2.5T MT (14:01)
[2020-05-06] MEDS ORDERED: CALC667C PO (14:01)
[2020-05-06] MEDS ORDERED: BENA40TA9 PO (14:01)
[2020-05-06] MEDS ORDERED: DIPHENHYDRAMINE 50MG/ML VIAL IV NR (15:15)
== END 2020-05-06 19:20 | disposition home or self-care (01) | DRG 291 ==
LOC: ER 07:38 → MICUSO 10:40 → 6WST 05-03 08:49
PROVIDERS: ADMIT Internal Medicine; ATTEND Internal Medicine
PROC: 5A1D70Z Performance of Urinary Filtration, Intermittent, Less than 6 Hours Per Day (ICD-10-PCS; principal; 2020-05-03)
PROC: 5A1D70Z Performance of Urinary Filtration, Intermittent, Less than 6 Hours Per Day (ICD-10-PCS; 2020-05-06)
DX: I13.2 Hypertensive heart and chronic kidney disease with heart failure and with stage 5 chronic kidney disease, or end stage renal disease (principal); N18.6 End stage renal disease; J96.00 Acute respiratory failure, unspecified whether with hypoxia or hypercapnia; G82.50 Quadriplegia, unspecified; J18.9 Pneumonia, unspecified organism; I50.23 Acute on chronic systolic (congestive) heart failure; E87.4 Mixed disorder of acid-base balance; N25.81 Secondary hyperparathyroidism of renal origin; I16.0 Hypertensive urgency; E11.649 Type 2 diabetes mellitus with hypoglycemia without coma; E11.22 Type 2 diabetes mellitus with diabetic chronic kidney disease; D72.819 Decreased white blood cell count, unspecified; J44.9 Chronic obstructive pulmonary disease, unspecified; E87.8 Other disorders of electrolyte and fluid balance, not elsewhere classified; E78.5 Hyperlipidemia, unspecified; E11.51 Type 2 diabetes mellitus with diabetic peripheral angiopathy without gangrene; D64.9 Anemia, unspecified; E87.5 Hyperkalemia; F17.210 Nicotine dependence, cigarettes, uncomplicated; I43 Cardiomyopathy in diseases classified elsewhere; Z20.828 Contact with and (suspected) exposure to other viral communicable diseases; I27.21 Secondary pulmonary arterial hypertension; F32.9 Major depressive disorder, single episode, unspecified; Z96.651 Presence of right artificial knee joint; Z91.15 Patient's noncompliance with renal dialysis; Z86.711 Personal history of pulmonary embolism; Z98.1 Arthrodesis status; Z95.0 Presence of cardiac pacemaker; Z79.899 Other long term (current) drug therapy; Z71.6 Tobacco abuse counseling; Z86.718 Personal history of other venous thrombosis and embolism
CPT/HCPCS: 36415; 36600; 71045; 80048; 80053; 82375; 82805; 82962; 83880; 84145; 84484; 85025; 86705; 86803; 86850; 86900; 87340; 87426; 93005; 94640; 96374; 97162; 97166; 97530; 99285; J0696; J0885; J1200; J1650; J1815; J2270; J3490; J7060; L0172

== ENCOUNTER → 2020-09-16 | Outpatient (CLI) | payer MEDICARE, MEDICAID ==
[~2020-09-16] MED LIST changes: +APIX2.5T MT; +GABA-532 MT; -GLIP10TA10 PO; -VALS80TA30 MT; -VALS80TA30 PO
== END | disposition home or self-care (01) ==
LOC: CT 07:13
PROVIDERS: ATTEND Neurological Surgery
DX: M47.816 Spondylosis without myelopathy or radiculopathy, lumbar region (principal); M51.37 Other intervertebral disc degeneration, lumbosacral region; M50.31 Other cervical disc degeneration, high cervical region; M48.07 Spinal stenosis, lumbosacral region; I70.0 Atherosclerosis of aorta; M25.78 Osteophyte, vertebrae
CPT/HCPCS: 72052; 72131

== ENCOUNTER 2020-10-07 07:37 | Emergency (ER) | payer MEDICAID, MEDICARE ==
[~2020-10-07] VITALS: Ht 182.9 cm; Wt 87.0 kg
[2020-10-07] MEDS ORDERED: T3 PO (08:14)
[2020-10-07] MEDS ORDERED: KETOROLAC 60MG/2ML VIAL IM ONE (08:15)
[2020-10-07 08:41] VITALS: BP 167/98
== END 2020-10-07 08:48 | disposition home or self-care (01) ==
LOC: ER 07:37
DX: M54.5 Low back pain (principal); E11.9 Type 2 diabetes mellitus without complications; I10 Essential (primary) hypertension; Z79.899 Other long term (current) drug therapy; Z98.890 Other specified postprocedural states
CPT/HCPCS: 96372; 99283; J1885

== ENCOUNTER 2021-02-01 08:23 | Emergency (ER) | payer MEDICARE, MEDICAID ==
[~2021-02-01] VITALS: Ht 182.9 cm; Wt 86.0 kg
[~2021-02-01 08:23] MED LIST changes: +ALBU18HF2 IH; +AMLO10TA80 PO; -GABA-532 PO; -INDA1.255; -METO50TA95 PO; -TRAM50TA3; -TYLENOL PM PO; +VIAG100 PO
[2021-02-01 08:34] VITALS: BP 182/103
[2021-02-01] MEDS ORDERED: MED4 MT (09:12)
[2021-02-01] MEDS ORDERED: DIPHENHYDRAMINE 25MG CAPSULE PO ONE (09:15)
[2021-02-01] MEDS ORDERED: PREDNISONE 20MG TABLET PO ONE (09:15)
== END 2021-02-01 09:35 | disposition home or self-care (01) ==
LOC: ER 08:23
DX: M54.5 Low back pain (principal); L29.9 Pruritus, unspecified; E11.9 Type 2 diabetes mellitus without complications; I10 Essential (primary) hypertension; Z95.0 Presence of cardiac pacemaker; Z79.899 Other long term (current) drug therapy
CPT/HCPCS: 99283; J7512; Q0163

== ENCOUNTER 2021-06-22 12:13 | Emergency (ER) | payer MEDICARE, MEDICAID ==
[~2021-06-22] VITALS: Ht 188 cm; Wt 82.0 kg
[~2021-06-22 12:13] MED LIST changes: +MED4 MT
[2021-06-22] MEDS ORDERED: DIAZEPAM 5 MG/ML 2ML CPJ IM ONE (15:30)
[2021-06-22] MEDS ORDERED: HYDROCODONE/APAP 7.5/325MG 1 TAB TABLET PO ONE (15:30)
[2021-06-22 15:55] VITALS: BP 146/71
[2021-06-22] MEDS ORDERED: DIAZ5TAB MT (16:21)
[2021-06-22] MEDS ORDERED: HYDR-4001 MT (16:21)
== END 2021-06-22 16:47 | disposition home or self-care (01) ==
LOC: ER 12:13
DX: M54.50 Low back pain, unspecified (principal); E11.22 Type 2 diabetes mellitus with diabetic chronic kidney disease; I12.9 Hypertensive chronic kidney disease with stage 1 through stage 4 chronic kidney disease, or unspecified chronic kidney disease; N18.9 Chronic kidney disease, unspecified; Z95.0 Presence of cardiac pacemaker
CPT/HCPCS: 96372; 99283

== ENCOUNTER 2021-10-22 10:09 | Emergency (ER) | payer MEDICARE, MEDICAID ==
[~2021-10-22] VITALS: Ht 182.9 cm; Wt 84.0 kg
[~2021-10-22 10:09] MED LIST changes: -BENA40TA9 PO; +BENA40TA91 PO; +DIAZ5TAB MT; +HYDR-4001 MT
[2021-10-22 10:21] VITALS: BP 166/93
[2021-10-22] MEDS ORDERED: HYDROCODONE/ACETAMINOPHEN 5/325MG TABLET PO ONE (10:30)
[2021-10-22] MEDS ORDERED: LIDOCAINE 5% PATCH TOP SCH (10:30)
[2021-10-22] MEDS ORDERED: HYDR-4001 MT (12:03)
[2021-10-22] MEDS ORDERED: LIDO1ADH23 TP (12:03)
== END 2021-10-22 12:32 | disposition home or self-care (01) ==
LOC: ER 10:09
DX: M25.551 Pain in right hip (principal); M25.511 Pain in right shoulder; M54.50 Low back pain, unspecified; G89.29 Other chronic pain; W01.0XXA Fall on same level from slipping, tripping and stumbling without subsequent striking against object, initial encounter; Y93.01 Activity, walking, marching and hiking; Y92.89 Other specified places as the place of occurrence of the external cause; I13.11 Hypertensive heart and chronic kidney disease without heart failure, with stage 5 chronic kidney disease, or end stage renal disease; E11.22 Type 2 diabetes mellitus with diabetic chronic kidney disease; N18.6 End stage renal disease; Z99.2 Dependence on renal dialysis; Z95.0 Presence of cardiac pacemaker
CPT/HCPCS: 73030; 73502; 73552; 99284

== ENCOUNTER 2021-10-25 08:17 | Inpatient (IN) | payer MEDICARE, MEDICAID ==
[~2021-10-25] VITALS: Ht 182.9 cm; Wt 83.0 kg
[~2021-10-25 08:17] MED LIST changes: +LIDO1ADH23 TP
[2021-10-25] MEDS ORDERED: VANCOMYCIN 1G PREMIX 200 ML IV ONE (08:45)
[2021-10-25] MEDS ORDERED: PIPERACILLIN/TAZ 3.375G PREMIX 50 ML IV ONE (08:45)
[2021-10-25] MEDS ORDERED: CLINDAMYCIN 600 MG in DEXTROSE 5% WATER 50 ML IV ONE (08:45)
[2021-10-25] MEDS ORDERED: SODIUM CHLORIDE 0.9% 1000ML BAG (SEPSIS BOLUS) IV ONE (08:45)
[2021-10-25] MEDS ORDERED: CLINDAMYCIN 600 MG PREMIX 50 ML IV SCH (09:00)
[2021-10-25] MEDS ORDERED: LIDOCAINE HCL/PF 1% 10 MG/ML 5ML VIAL ONE (09:05)
[2021-10-25 10:18] LABS: BASOPHILS % 0.6 % (0.0-2.0); EOSINOPHILS % 1.6 % (0.0-5.0); HEMATOCRIT. 28.6 % (42.0-52.0); HEMOGLOBIN. 9.6 g/dL (14.0-18.0); LYMPHOCYTES % 12.4 % (20.0-50.0); MEAN CORPUSCULAR HEMOGLOBIN 32.3 pg (28.0-32.0); MEAN CORPUSCULAR VOLUME 96.6 fL (80.0-94.0); MEAN PLATELET VOLUME 7.6 fl (7.4-10.4); MONOCYTES % 8.2 % (2.0-8.0); NEUTROPHILS % 77.2 % (40.0-76.0); PLATELET 191 x1000/uL (130-400); RED BLOOD CELL COUNT 2.96 mill/uL (4.7-6.1); RED CELL DISTRIBUTION WIDTH 15.5 % (11.6-14.6)
[2021-10-25 10:28] LABS: CHLORIDE 103 mEq/L (98-107)
[2021-10-25 10:29] LABS: PARTIAL THROMBOPLASTIN TIME 30.1 sec (23.4-31.0); PROTHROMBIN TIME 10.6 sec (9.6-11.0)
[2021-10-25 10:47] LABS: MONOTEST NEGATIVE (NEGATIVE)
[2021-10-25] MEDS ORDERED: VANCOMYCIN 1G PREMIX 200 ML IV NR (11:15)
[2021-10-25] MEDS ORDERED: ENOXAPARIN 80MG/0.8ML SYR SUBCUT ONE (11:15)
[2021-10-25] MEDS ORDERED: PIPERACILLIN/TAZ 3.375G PREMIX 50 ML IV NR (11:15)
[2021-10-25] MEDS ORDERED: ONDANSETRON HCL 4MG/2ML INJ IV PRN (12:30)
[2021-10-25] MEDS ORDERED: IPRATROPIUM/ALBUTEROL 0.5-3(2.5)MG/3ML NEB HHN PRN (12:30)
[2021-10-25] MEDS ORDERED: CLONIDINE 0.1MG TABLET PO PRN (12:30)
[2021-10-25] MEDS ORDERED: ACETAMINOPHEN 325MG TABLET PO PRN (12:30)
[2021-10-25] MEDS: MORPHINE SULFATE 2 MG/ML CPJ (NOT FOR IM USE) IV PRN ×3 (12:58→18:01)
[2021-10-25] MEDS ORDERED: ENOXAPARIN 80MG/0.8ML SYR SUBCUT SCH (13:00)
[2021-10-25 19:15] LABS: CLARITY URINE CLEAR (CLEAR); COLOR URINE YELLOW (YELLOW); KETONES URINE NEGATIVE (NEGATIVE); LEUKOCYTE ESTERASE URINE NEGATIVE (NEGATIVE); NITRITE URINE NEGATIVE (NEGATIVE); OCCULT BLOOD URINE NEGATIVE (NEGATIVE); PH URINE 8.5 (4.5-8.0); PROTEIN URINE 2+ (NEGATIVE); SPECIFIC GRAVITY URINE 1.014 (1.005-1.030); UROBILINOGEN URINE 0.2 E.U./dL (0.2-1.0)
[2021-10-25 21:10] VITALS: BP 185/94
[2021-10-25 22:30] VITALS: BP 185/94
[2021-10-26] VITALS (9 sets, daily range): BP systolic 163–195; BP diastolic 65–104
[2021-10-26 02:07] LABS: HEPATITIS B SURFACE ANTIGEN NEGATIVE
[2021-10-26] MEDS: MORPHINE SULFATE 2 MG/ML CPJ (NOT FOR IM USE) IV PRN ×2 (05:50→19:48)
[2021-10-26 07:29] LABS: BASOPHILS % 0.5 % (0.0-2.0); EOSINOPHILS % 2.9 % (0.0-5.0); HEMATOCRIT. 28.1 % (42.0-52.0); HEMOGLOBIN. 9.4 g/dL (14.0-18.0); LYMPHOCYTES % 16.6 % (20.0-50.0); MEAN CORPUSCULAR VOLUME 95.9 fL (80.0-94.0); MONOCYTES % 9.2 % (2.0-8.0); NEUTROPHILS % 70.8 % (40.0-76.0); PLATELET 197 x1000/uL (130-400); RED BLOOD CELL COUNT 2.93 mill/uL (4.7-6.1); RED CELL DISTRIBUTION WIDTH 15.4 % (11.6-14.6)
[2021-10-26 08:40] LABS: CHLORIDE 102 mEq/L (98-107)
[2021-10-26 08:48] LABS: PHOSPHORUS 5.5 mg/dL (2.5-4.9)
[2021-10-26] MEDS: ENOXAPARIN 80MG/0.8ML SYR SUBCUT SCH (08:52)
[2021-10-26] MEDS: DIPHENHYDRAMINE 50MG/ML VIAL IV PRN ×2 (08:52→21:52)
[2021-10-26] MEDS ORDERED: LIDOCAINE HCL 1% 10 MG/ML 10ML VIAL ONE (12:43)
[2021-10-26] MEDS ORDERED: IOHEXOL-300 100 ML BOTTLE ONE (12:43)
[2021-10-26] MEDS ORDERED: DEXTROSE 50% WATER 50ML SYRINGE IV PRN (14:30)
[2021-10-26] MEDS: BLOOD SUGAR DIAGNOSTIC STRIP TEST SCH ×2 (16:33→19:47)
[2021-10-26] MEDS: INSULIN LISPRO 100 UNITS/ML SUBCUT SCH ×2 (17:30→21:00)
[2021-10-27 04:00] VITALS: BP 165/86
[2021-10-27] MEDS: DIPHENHYDRAMINE 50MG/ML VIAL IV PRN (04:07)
[2021-10-27] MEDS: MORPHINE SULFATE 2 MG/ML CPJ (NOT FOR IM USE) IV PRN (05:34)
[2021-10-27] MEDS: BLOOD SUGAR DIAGNOSTIC STRIP TEST SCH (06:39)
[2021-10-27] MEDS: INSULIN LISPRO 100 UNITS/ML SUBCUT SCH (06:39)
[2021-10-27 08:00] VITALS: BP 150/78
[2021-10-27] MEDS: ENOXAPARIN 80MG/0.8ML SYR SUBCUT SCH (08:46)
[2021-10-27] MEDS ORDERED: APIX5TAB MT (11:45)
[2021-10-27 12:00] VITALS: BP 140/92
[2021-10-27 13:07] VITALS: BP 140/92
== END 2021-10-27 13:45 | disposition home or self-care (01) | DRG 299 ==
LOC: ER 08:17 → EDBEDREQ 11:07 → EDBEDREQTM 11:07 → ENRESERV 12:25 → CANRESERV 12:25 → EDBEDREQSVC 12:55 → ENRESERV 19:17 → 8WST 22:02
PROVIDERS: ADMIT Internal Medicine; ATTEND Internal Medicine
PROC: 02HV33Z Insertion of Infusion Device into Superior Vena Cava, Percutaneous Approach (ICD-10-PCS; principal; 2021-10-25)
PROC: B548ZZA Ultrasonography of Superior Vena Cava, Guidance (ICD-10-PCS; 2021-10-25)
PROC: B51W1ZZ Fluoroscopy of Dialysis Shunt/Fistula using Low Osmolar Contrast (ICD-10-PCS; 2021-10-26)
PROC: B5181ZZ Fluoroscopy of Superior Vena Cava using Low Osmolar Contrast (ICD-10-PCS; 2021-10-26)
PROC: 5A1D70Z Performance of Urinary Filtration, Intermittent, Less than 6 Hours Per Day (ICD-10-PCS; 2021-10-26)
DX: I82.C12 Acute embolism and thrombosis of left internal jugular vein (principal); N18.6 End stage renal disease; I13.2 Hypertensive heart and chronic kidney disease with heart failure and with stage 5 chronic kidney disease, or end stage renal disease; I43 Cardiomyopathy in diseases classified elsewhere; I87.1 Compression of vein; I50.42 Chronic combined systolic (congestive) and diastolic (congestive) heart failure; E11.22 Type 2 diabetes mellitus with diabetic chronic kidney disease; E11.51 Type 2 diabetes mellitus with diabetic peripheral angiopathy without gangrene; E78.5 Hyperlipidemia, unspecified; F32.A Depression, unspecified; J43.9 Emphysema, unspecified; Z96.651 Presence of right artificial knee joint; Z20.822 Contact with and (suspected) exposure to COVID-19; G89.29 Other chronic pain; M54.50 Low back pain, unspecified; R13.10 Dysphagia, unspecified; Z72.0 Tobacco use; Z82.49 Family history of ischemic heart disease and other diseases of the circulatory system; Z86.711 Personal history of pulmonary embolism; Z91.19 Patient's noncompliance with other medical treatment and regimen; Z95.0 Presence of cardiac pacemaker; Z99.2 Dependence on renal dialysis; Z98.62 Peripheral vascular angioplasty status; Z79.899 Other long term (current) drug therapy; Z79.01 Long term (current) use of anticoagulants
CPT/HCPCS: 36415; 36573; 36901; 70491; 71045; 80053; 81003; 82962; 83036; 83605; 83735; 83970; 84100; 84145; 84484; 85025; 86308; 86705; 86709; 86803; 86850; 86900; 87070; 87340; 87426; 87430; 93005; 93970; 99291; C1725; C1769; C9803; J1200; J1644; J1650; J1815; J2270; J3490; J7030; J7060; Q9967

== ENCOUNTER 2021-11-05 07:24 | Emergency (ER) | payer MEDICARE, MEDICAID ==
[~2021-11-05] VITALS: Ht 172.7 cm; Wt 80.0 kg
[~2021-11-05 07:24] MED LIST changes: -APIX2.5T MT; +APIX5TAB MT; -MED4 MT
[2021-11-05] MEDS ORDERED: IBUPROFEN 600MG TABLET PO ONE (08:15)
[2021-11-05 08:59] VITALS: BP 169/81
[2021-11-05] MEDS ORDERED: ACETAMINOPHEN WITH CODEINE 300/30MG TABLET PO ONE (09:15)
[2021-11-05] MEDS ORDERED: IBUP-2029 MT (09:15)
== END 2021-11-05 09:29 | disposition home or self-care (01) ==
LOC: ER 07:24
DX: S00.03XA Contusion of scalp, initial encounter (principal); S40.011A Contusion of right shoulder, initial encounter; S70.01XA Contusion of right hip, initial encounter; E11.22 Type 2 diabetes mellitus with diabetic chronic kidney disease; I13.11 Hypertensive heart and chronic kidney disease without heart failure, with stage 5 chronic kidney disease, or end stage renal disease; N18.6 End stage renal disease; Z99.2 Dependence on renal dialysis; Z95.0 Presence of cardiac pacemaker; W07.XXXA Fall from chair, initial encounter; Y93.89 Activity, other specified; Y92.818 Other transport vehicle as the place of occurrence of the external cause
CPT/HCPCS: 73030; 73502; 99284